=== PATIENT | male | born 1950 | race Caucasian/White ===

== ENCOUNTER 2018-02-06 20:26 | Outpatient (REF) | payer MEDICARE, BC, SELFPAY | END 2018-02-06 20:27 | LOC: LBN 20:26 | PROVIDERS: PCP Family Medicine; Visit Provider Internal Medicine Infectious Disease | DX: Z91.89 Other specified personal risk factors, not elsewhere classified (principal); Z79.2 Long term (current) use of antibiotics | CPT/HCPCS: 87324 ==

== ENCOUNTER 2018-02-09 12:06 | Outpatient (REF) | payer MEDICARE, BC, SELFPAY ==
[2018-02-09 21:57] LABS: Abs Immature Grans 0.08 k/cumm (0.0-0.09); Absolute Basophil Count 0.02 k/cumm (0.0-0.2); Absolute Eosinophil Count 0.45 k/cumm (0.0-0.7); Absolute Lymphocyte Count 0.97 k/cumm (1.2-3.4); Absolute Monocyte Count 0.64 k/cumm (0.11-0.7); Absolute Neutrophil Count 4.99 k/cumm (1.2-6.7); Basophils % 0.3; Eosinophils % 6.3; HCT 40.8 % (40.0-50.0); HGB 13.2 g/dL (13.5-17.5); Immature Grans % 1.1; Lymphocytes % 13.6; Mean Corp. HGB Concentration 32.4 g/dL (32.0-36.0); Mean Corpuscular Hemoglobin 28.5 pg (27.0-33.0); Mean Corpuscular Volume 88.1 fL (80-95); Neutrophils % 69.7; Platelet Count 331 x1000/uL (130-400); RBC 4.63 m/cumm (4.50-6.00); RBC Distribution Width 16.6 % (11.8-14.1); White Blood Cell Count 7.15 k/cumm (4.4-10.8)
[2018-02-09 22:14] LABS: BUN 13 mg/dL (7-18); CREATININE 1.15 mg/dL (0.70-1.30)
[2018-02-09 23:43] LABS: ESR 27 MM/HR (1-20)
== END 2018-02-09 12:07 ==
LOC: LBN 12:06
PROVIDERS: PCP Family Medicine; Visit Provider Internal Medicine Infectious Disease
DX: N41.2 Abscess of prostate (principal); Z79.2 Long term (current) use of antibiotics
CPT/HCPCS: 84520; 85652; 82565; 85025; 86140

== ENCOUNTER 2019-01-27 11:20 | Outpatient (REF) | payer MEDICARE, BC, SELFPAY | END 2019-01-27 11:40 | LOC: NCHCN 11:20 | PROVIDERS: PCP Family Medicine; Visit Provider Family Medicine | DX: R31.9 Hematuria, unspecified (principal) | CPT/HCPCS: 87086 ==

== ENCOUNTER 2019-04-20 17:48 | Outpatient (REF) | payer MEDICARE, BC, SELFPAY ==
[2019-04-20 22:13] LABS: Anion Gap 11.7 mmol/L (3-11); BUN 27 mg/dL (7-18); CO2 28.3 mmol/L (21.0-32.0); CREATININE 1.46 mg/dL (0.70-1.30); Calcium 8.4 mg/dL (8.5-10.1); Chloride 100 mmol/L (98-107); Estimated GFR 47.73 (mL/min/1.73m2); Glucose 304 mg/dL (70-100); Magnesium 1.5 mg/dL (1.8-2.4); Potassium 4.8 mmol/L (3.5-5.1); Sodium 140 mmol/L (136-145)
[2019-04-22 10:30] LABS: PSA, Screening <0.1 ng/ml (0-6.5)
== END 2019-04-20 18:08 ==
LOC: NCHCN 17:48
PROVIDERS: PCP Family Medicine; Visit Provider Family Medicine
DX: N40.0 Benign prostatic hyperplasia without lower urinary tract symptoms (principal); I10 Essential (primary) hypertension; E83.42 Hypomagnesemia; Z12.5 Encounter for screening for malignant neoplasm of prostate
CPT/HCPCS: 80048; 84153; 83735

== ENCOUNTER 2019-05-28 11:30 | Outpatient (REF) | payer MEDICARE, BC, SELFPAY ==
[2019-05-28 21:53] LABS: Anion Gap 7.8 mmol/L (3-11); BUN 26 mg/dL (7-18); CO2 28.2 mmol/L (21.0-32.0); CREATININE 0.97 mg/dL (0.70-1.30); Chloride 106 mmol/L (98-107); Glucose 96 mg/dL (74-106); Potassium 4.7 mmol/L (3.5-5.1); Sodium 142 mmol/L (136-145)
== END 2019-05-28 11:50 ==
LOC: NCHCN 11:30
PROVIDERS: PCP Family Medicine; Visit Provider Family Medicine
DX: R94.4 Abnormal results of kidney function studies (principal); Z01.818 Encounter for other preprocedural examination
CPT/HCPCS: 80048

== ENCOUNTER 2020-01-12 19:31 | Outpatient (REF) | payer MEDICARE, BC, SELFPAY ==
[2020-01-12 20:42] LABS: Abs Immature Grans 0.03 k/cumm (0.0-0.09); Absolute Basophil Count 0.01 k/cumm (0.0-0.2); Absolute Eosinophil Count 0.03 k/cumm (0.0-0.7); Absolute Lymphocyte Count 0.93 k/cumm (1.2-3.4); Absolute Monocyte Count 0.61 k/cumm (0.11-0.7); Absolute Neutrophil Count 3.49 k/cumm (1.2-6.7); Basophils % 0.2; Bilirubin Negative (Negative); Blood Negative (Negative); Eosinophils % 0.6; Glucose Negative (Negative); HCT 43.3 % (40.0-50.0); HGB 13.4 g/dL (13.5-17.5); Immature Grans % 0.6 %; Ketones Trace mg/dL (Negative); Leukocyte Esterase Negative (Negative); Lymphocytes % 18.2; Mean Corp. HGB Concentration 30.9 g/dL (32.0-36.0); Mean Corpuscular Hemoglobin 24.9 pg (27.0-33.0); Mean Corpuscular Volume 80.5 fL (80-95); Mean Platelet Volume 10.9 fL (8.0-11.0); Neutrophils % 68.4; Nitrite Negative (Negative); Platelet Count 342 x1000/uL (130-400); RBC 5.38 m/cumm (4.50-6.00); RBC Distribution Width 20.3 % (11.8-14.1); Specific Gravity >= 1.030 (1.005-1.025); Urobilinogen 0.2 EU/dL (Up TO 0.2); pH 5.5 (5-8)
[2020-01-12 20:45] LABS: Clarity Cloudy (Clear)
[2020-01-12 20:59] LABS: ALT 48 U/L (16-63); AST 29 U/L (15-37); Alkaline Phosphatase 48 U/L (46-116); Anion Gap 10.6 mmol/L (3-11); BUN 26 mg/dL (7-18); Bilirubin, Total 0.6 mg/dL (0.2-1.0); CO2 29.4 mmol/L (21.0-32.0); CREATININE 1.24 mg/dL (0.70-1.30); Calcium 9.3 mg/dL (8.5-10.1); Chloride 100 mmol/L (98-107); Estimated GFR 57.47 (mL/min/1.73m2); Glucose 237 mg/dL (74-106); Potassium 4.3 mmol/L (3.5-5.1); Sodium 140 mmol/L (136-145); Total Protein 7.8 g/dL (6.4-8.2)
[2020-01-12 21:06] LABS: Anisocytosis 2+; Polychromasia Present
== END 2020-01-12 19:51 ==
LOC: LBN 19:31
PROVIDERS: PCP Family Medicine; Visit Provider Urology
DX: R30.0 Dysuria (principal); M06.9 Rheumatoid arthritis, unspecified; Z79.899 Other long term (current) drug therapy
CPT/HCPCS: 80053; 81003; 85025; 87086

== ENCOUNTER 2020-01-20 12:14 | Outpatient (REF) | payer MEDICARE, BC, SELFPAY ==
[2020-01-20 21:16] LABS: Cholesterol 188 mg/dL (<200); HDL Cholesterol 26 mg/dL (40-60); Triglyceride 581 mg/dL (<150)
[2020-01-20 21:31] LABS: LDL CHOLESTEROL 94 mg/dL (<100)
[2020-01-24 09:19] LABS: PSA, Screening <0.1 ng/mL (0.0-6.5)
== END 2020-01-20 12:34 ==
LOC: NCHCN 12:14
PROVIDERS: PCP Family Medicine; Visit Provider Family Medicine
DX: E11.9 Type 2 diabetes mellitus without complications (principal); E78.5 Hyperlipidemia, unspecified; N40.0 Benign prostatic hyperplasia without lower urinary tract symptoms; Z12.5 Encounter for screening for malignant neoplasm of prostate; Z87.448 Personal history of other diseases of urinary system
CPT/HCPCS: 80061; 83721; 84153

== ENCOUNTER 2020-03-23 10:50 | Outpatient (REF) | payer MEDICARE, BC, SELFPAY ==
[2020-03-23 21:44] LABS: Vitamin D 25 Total 99.5 ng/ml (30-100)
== END 2020-03-23 11:10 ==
LOC: NCHCN 10:50
PROVIDERS: PCP Family Medicine; Visit Provider Family Medicine
DX: N18.30 Chronic kidney disease, stage 3 unspecified (principal)
CPT/HCPCS: 82306

== ENCOUNTER 2020-04-28 03:29 | Outpatient (CLI) | payer MEDICARE, BC, SELFPAY ==
[2020-04-30 11:45] LABS: SARS-CoV-2 RNA Not Detected (NotDetected); SARS-CoV-2 RNA Source Nasal/Nares
== END 2020-04-28 03:49 ==
PROVIDERS: PCP Family Medicine; Visit Provider Family Medicine
DX: Z01.818 Encounter for other preprocedural examination (principal)
CPT/HCPCS: U0003

== ENCOUNTER 2020-06-09 11:44 | Outpatient (REF) | payer MEDICARE, BC, SELFPAY ==
[2020-06-09 21:32] LABS: HGB 11.3 g/dL (13.5-17.5); MCH 24.8 pg (27.0-33.0); MCHC 30.5 % (32.0-36.0); MCV 81.3 fL (80-95); MPV 10.5 fL (8.0-11.0); Platelet Count 249 10^3/uL (130-400); RBC 4.55 10^6/uL (4.36-5.78); RDW-SD 57.3 fL; WBC 5.54 10^3/uL (4.4-10.8)
[2020-06-09 21:49] LABS: ALT 31 U/L (16-63); AST 19 U/L (15-37); Albumin 3.6 g/dL (3.4-5.0); Alkaline Phosphatase 42 U/L (46-116); Anion Gap 9.9 mmol/L (3-11); BUN 24 mg/dL (7-18); Bilirubin, Total 0.6 mg/dL (0.2-1.0); CO2 26.1 mmol/L (21.0-32.0); CREATININE 1.16 mg/dL (0.70-1.30); Calcium 8.7 mg/dL (8.5-10.1); Chloride 103 mmol/L (98-107); Glucose 138 mg/dL (74-106); Potassium 4.1 mmol/L (3.5-5.1); Sodium 139 mmol/L (136-145); Total Protein 6.6 g/dL (6.4-8.2)
[2020-06-09 21:59] LABS: Hemoglobin A1C 6.8 % (<5.7)
== END 2020-06-09 12:04 ==
LOC: NCHCN 11:44
PROVIDERS: PCP Family Medicine; Visit Provider Family Medicine
DX: E11.65 Type 2 diabetes mellitus with hyperglycemia (principal); I10 Essential (primary) hypertension; D50.9 Iron deficiency anemia, unspecified; R94.4 Abnormal results of kidney function studies; E66.9 Obesity, unspecified; E78.5 Hyperlipidemia, unspecified
CPT/HCPCS: 80053; 85027; 83036

== ENCOUNTER 2020-07-07 19:47 | Outpatient (REF) | payer MEDICARE, BC, SELFPAY ==
[2020-07-07 21:46] LABS: Abs Immature Grans 0.02 10^3/uL (0.0-0.06); Absolute Basophil Count 0.03 10^3/uL (0.0-0.2); Absolute Eosinophil Count 0.01 10^3/uL (0.0-0.7); Absolute Lymphocyte Count 1.15 10^3/uL (1.2-3.4); Absolute Monocyte Count 0.47 10^3/uL (0.1-0.8); Absolute Neutrophil Count 4.13 10^3/uL (1.2-6.7); Basophils % 0.5; Eosinophils % 0.2; HCT 38.5 % (40.0-50.0); Immature Grans % 0.3; Lymphocytes % 19.8; MCH 26.6 pg (27.0-33.0); MCHC 31.2 % (32.0-36.0); MCV 85.4 fL (80-95); MPV 9.8 fL (8.0-11.0); Monocytes % 8.1; Neutrophils % 71.1; Nucleated RBC 0 %; Platelet Count 273 10^3/uL (130-400); RBC 4.51 10^6/uL (4.36-5.78); RDW 23.9 % (11.8-14.1); RDW-SD 71.9 fL; WBC 5.81 10^3/uL (4.4-10.8)
[2020-07-07 21:48] LABS: BUN 23 mg/dL (7-18); Calcium 8.7 mg/dL (8.5-10.1); Chloride 105 mmol/L (98-107); Estimated GFR 59.68 (mL/min/1.73m2); Glucose 179 mg/dL (74-106); Potassium 4.3 mmol/L (3.5-5.1); Sodium 139 mmol/L (136-145)
[2020-07-07 21:58] LABS: Anisocytosis 3+; Diff Comment RBC Morph Reviewed; Macrocytosis 1+; Microcytosis 1+; Polychromasia Present
[2020-07-07 21:59] LABS: Poikilocytes 1+
== END 2020-07-07 20:07 ==
LOC: LBN 19:47
PROVIDERS: PCP Family Medicine; Visit Provider Orthopaedic Surgery
DX: Z01.818 Encounter for other preprocedural examination (principal)
CPT/HCPCS: 80048; 85025

== ENCOUNTER 2020-09-19 20:53 | Outpatient (REF) | payer MEDICARE, BC, SELFPAY ==
[2020-09-19 21:31] LABS: HCT 32.7 % (40.0-50.0); HGB 10.8 g/dL (13.5-17.5); MCH 33.2 pg (27.0-33.0); MCV 100.6 fL (80-95); MPV 9.6 fL (8.0-11.0); Platelet Count 277 10^3/uL (130-400); RBC 3.25 10^6/uL (4.36-5.78); RDW 19.9 % (11.8-14.1); RDW-SD 73.3 fL; WBC 3.94 10^3/uL (4.4-10.8)
[2020-09-19 21:38] LABS: BUN 19 mg/dL (7-18); CREATININE 1.2 mg/dL (0.70-1.30); Calcium 8.6 mg/dL (8.5-10.1); Chloride 105 mmol/L (98-107); Estimated GFR 59.68 (mL/min/1.73m2); Glucose 183 mg/dL (74-106); Potassium 4.3 mmol/L (3.5-5.1); Sodium 143 mmol/L (136-145)
[2020-09-19 21:50] LABS: Hemoglobin A1C 7.1 % (<5.7)
== END 2020-09-19 20:54 | disposition home or self-care (01) ==
LOC: NCHCN 20:53
PROVIDERS: PCP Family Medicine; Visit Provider Family Medicine
DX: E11.9 Type 2 diabetes mellitus without complications (principal); Z01.818 Encounter for other preprocedural examination
CPT/HCPCS: 80048; 85027; 83036

== ENCOUNTER 2020-10-27 20:39 | Outpatient (REF) | payer MEDICARE, BC, SELFPAY ==
[2020-10-27 21:33] LABS: Bilirubin Negative (Negative); Blood Trace-intact (Negative); Clarity Turbid (Clear); Glucose Negative (Negative); Ketones Negative (Negative); Leukocyte Esterase Small (Negative); Nitrite Positive (Negative); Urobilinogen 0.2 EU/dL (Up TO 0.2); pH >= 9.0 (5-8)
[2020-10-27 21:47] LABS: Bacteria Many HPF (Negative); Crystals Few Triple Phos HPF (Negative); Epithelial Cells Few HPF (Negative); RBC >50 HPF (0-2)
[2020-10-27 21:48] LABS: C & S Indicated? C&S Done As Ordered; Casts Negative LPF (Negative); Mucus Heavy (Negative)
== END 2020-10-27 20:40 | disposition home or self-care (01) ==
LOC: NCHCN 20:39
PROVIDERS: PCP Family Medicine; Visit Provider Urology
DX: R35.0 Frequency of micturition (principal)
CPT/HCPCS: 87077; 81003; 81015; 87086; 87186

== ENCOUNTER 2020-11-21 15:15 | Outpatient (REF) | payer MEDICARE, BC, SELFPAY ==
[2020-11-21 21:43] LABS: Bilirubin Negative (Negative); Blood Large (Negative); Clarity Cloudy (Clear); Glucose Negative (Negative); Ketones Negative (Negative); Leukocyte Esterase Moderate (Negative); Nitrite Positive (Negative); Urobilinogen 0.2 EU/dL (Up TO 0.2); pH 8.5 (5-8)
[2020-11-21 21:55] LABS: Epithelial Cells Rare HPF (Negative); Other Cells Negative (Negative); WBC 20-50 HPF (0-5)
[2020-11-21 21:56] LABS: Bacteria Many HPF (Negative); C & S Indicated? C&S Done As Ordered; Casts Negative LPF (Negative); Crystals Few Triple Phos HPF (Negative); Mucus Moderate (Negative)
== END 2020-11-21 15:16 | disposition home or self-care (01) ==
LOC: LBN 15:15
PROVIDERS: PCP Family Medicine; Visit Provider Urology
DX: R31.0 Gross hematuria (principal)
CPT/HCPCS: 87077; 81003; 81015; 87086; 87186

== ENCOUNTER 2020-12-26 17:05 | Outpatient (REF) | payer MEDICARE, BC, SELFPAY ==
[2020-12-26 20:23] LABS: HCT 35.6 % (40.0-50.0); HGB 11.8 g/dL (13.5-17.5); MCH 36.1 pg (27.0-33.0); MCHC 33.1 % (32.0-36.0); MCV 108.9 fL (80-95); MPV 10.8 fL (8.0-11.0); Platelet Count 292 10^3/uL (130-400); RBC 3.27 10^6/uL (4.36-5.78); RDW 13.2 % (11.8-14.1); RDW-SD 53.1 fL; WBC 5.71 10^3/uL (4.4-10.8)
[2020-12-26 20:54] LABS: COMMENT (LAB VIEW ONLY) 136.32 mg/dL
[2020-12-26 21:00] LABS: Microalb ug/mg Crea 321.7 ug/mg Cr
== END 2020-12-26 17:06 | disposition home or self-care (01) ==
LOC: NCHCN 17:05
PROVIDERS: PCP Family Medicine; Visit Provider Family Medicine
DX: D50.9 Iron deficiency anemia, unspecified (principal); R39.9 Unspecified symptoms and signs involving the genitourinary system; E11.9 Type 2 diabetes mellitus without complications
CPT/HCPCS: 85027; 87077; 82043; 82570; 87086; 87186

== ENCOUNTER 2021-01-19 19:43 | Inpatient (IN) | payer MEDICARE, BC, SELFPAY ==
[2021-01-19] VITALS (27 sets, daily range): BP systolic 125–161; BP diastolic 64–99; PULSE 103–115; RESP 16–40; TEMP 36.8; O2SAT 94–98
--- NOTE | 2021-01-19 19:45 | RT.EKG_ITS ---
APPROVED REPORT Exam: Resting ECG Reason for Exam: chest pain Patient Location: E HR:108 bpm ECG Measurements Heart Rate 108 AXIS IN 180 P 50 QRSd 77 QRS 34 QT 316 T 41 QTc 424 Conclusion Sinus tachycardia...rate> 99
--- NOTE | 2021-01-19 20:00 | DI.RAD_ITS ---
Exam(s) XR CHEST 2V PA LATERAL EXAM: XR CHEST 2V PA LATERAL CLINICAL HISTORY: Chest Pain, SOB TECHNIQUE: COMPARISON: CT CT CHEST PE CTA from 01/19/2021 FINDINGS: The heart is at the upper limits of normal in size. Lungs appear clear and normally expanded. No pl eural effusion seen on the lateral view. IMPRESSION: No evidence of acute process. RADIATION DOSE DELIVERED: Total DLP
[2021-01-19 20:02] LABS: Abs Immature Grans 0.07 10^3/uL (0.0-0.06); Absolute Lymphocyte Count 0.76 10^3/uL (1.2-3.4); Basophils % 0.2; HCT 41.6 % (40.0-50.0); HGB 13.7 g/dL (13.5-17.5); Immature Grans % 0.5; Lymphocytes % 5.9; MCH 34.1 pg (27.0-33.0); MCHC 32.9 % (32.0-36.0); MCV 103.5 fL (80-95); MPV 10.2 fL (8.0-11.0); Monocytes % 6.9; Neutrophils % 86.5; Nucleated RBC 0 %; Platelet Count 279 10^3/uL (130-400); RBC 4.02 10^6/uL (4.36-5.78); RDW 12.8 % (11.8-14.1); RDW-SD 49.1 fL; WBC 12.83 10^3/uL (4.4-10.8)
[2021-01-19 20:03] LABS: Absolute Basophil Count 0.03 10^3/uL (0.0-0.2); Absolute Monocyte Count 0.89 10^3/uL (0.1-0.8)
--- NOTE | 2021-01-19 20:10 | ED.GENADUL_ITS ---
Discharge Plan Disposition Patient Disposition: [facility] INPATIENT Condition: Stable Discharge Details Clinical Impression: UTI (urinary tract infection), Altered mental status, unspecified Admit Date/Time: 01/19/21 22:42 Admit Provider: Enrique Brown Attending Provider: Enrique Brown Primary Care Provider: Jax Higginbotham ED Provider: Patria Kim Medical Decision Making <Patria Kim - Last Filed: 01/19/21 23:58> 70-year-old male presents to the ER via EMS with chief complaint of chest pain, disorientation, mild shortness of breath which began approximately 2 hours ago. Patient reports lasted for approximately 45 minutes he describes as midsternal. He is not currently having any chest pain upon arrival. He does have a past medical history of insulin-dependent diabetes, SVT, CHF and is on diuretics, denies having any significant cardiac history besides SVT no [place]. Did take 324 mg of baby aspirin at home prior to arrival of the onset of chest pain. CBC shows mild leukocytosis with white blood cell count of 12.83, absolute neutrophils 11.10, sodium is 146, potassium 4.4, BUN 33 creatinine 1.4 GFR is 49.82 glucose is 136 mag is slightly low at 1.7 initial troponin within normal limits less than 0.05 BNP is not elevated, urinalysis shows 30 protein, trace ketones, small blood, positive nitrite small leukocytes greater than 50 WBC, culture is pending at this COMPARISON: CR XR CHEST 2V PA LATERAL 01/19/2021 8:38 PM FINDINGS: Pulmonary arteries: Breathing motion limits exam. No evidence of pulmonary embolus to the lobar level and segmental level in some cases. Aorta: Unremarkable. No aortic aneurysm. No aortic dissection. Lungs: Unremarkable. No consolidation. No masses. Pleural spaces: Unremarkable. No pneumothorax. No pleural effusion. Heart: Unremarkable. No cardiomegaly. No pericardial effusion. Lymph nodes: Mildly prominent mediastinal lymph nodes. Kidneys and ureters: Hypodensity in the right kidney is most likely a cyst. Bones/joints: Unremarkable. No acute fracture. Soft tissues: Unremarkable. IMPRESSION: Limited study due to breathing motion, but no evidence of pulmonary embolus CTA chest with contrast: FINDINGS: Pulmonary arteries: Breathing motion limits exam. No evidence of pulmonary embolus to the lobar level and segmental level in some cases. Aorta: Unremarkable. No aortic aneurysm. No aortic dissection. Lungs: Unremarkable. No consolidation. No masses. Pleural spaces: Unremarkable. No pneumothorax. No pleural effusion. Heart: Unremarkable. No cardiomegaly. No pericardial effusion. Lymph nodes: Mildly prominent mediastinal lymph nodes. Kidneys and ureters: Hypodensity in the right kidney is most likely a cyst. Bones/joints: Unremarkable. No acute fracture. Soft tissues: Unremarkable. IMPRESSION: Limited study due to breathing motion, but no evidence of pulmonary embolus Due to UTI, high risk factors, weakness confusion, CBC with slight leukocytosis I do recommend admission at this time for IV antibiotics and further observation. I did discuss the plan with patient and who verbalized understanding and are in agreement with plan. Rocephin 1 g IV piggyback ordered at this time. Normal saline at 150 an hour ordered. 2200: Hospitalist paged. 2241: Spoke with Dr. Brown discussed patient case and details who agrees to accept patient for admission. Patient remained hemodynamically stable throughout the rest of the stay in the emergency department. Patient transferred up to the floor by billing and accounting staff assistant. <Gael Wilkerson MD - Last Filed: 01/19/21 23:35> Patient seen, examined, and discussed with ALICE Kim. I agree with treatment plan as discussed/documented. HPI <Patria Kim - Last Filed: 01/19/21 23:58> General Mode of arrival: EMS . Date/Time Provider Initiated Documentation: 01/19/21 19:45 . Limitations to Documentation: altered mental status . Information obtained by: patient, family () and EMS . HPI Narrative: 70-ye ar-old male presents to the ER via EMS with chief complaint of chest pain, disorientation, mild shortness of breath which began approximately 2 hours ago. Patient reports lasted for approximately 45 minutes he describes as midsternal. He is not currently having any chest pain upon arrival. He does have a past medical history of insulin-dependent diabetes, SVT, CHF and is on diuretics, denies having any significant cardiac history besides SVT no [place]. Did take 324 mg of baby aspirin at home prior to arrival of the onset of chest pain. Related Data Home Medications Medication Instructions Recorded Confirmed Lactobac 40-Bifido 3-S.thermop 1 cap PO DAILY 01/19/21 01/19/21 [Probiotic] albuterol sulfate [ProAir HFA] 1 - 2 puff INHALATION Q4H PRN PRN 01/19/21 01/19/21 aspirin [Aspir-81] 81 mg PO DAILY 01/19/21 01/19/21 cetirizine [Zyrtec] 10 mg PO DAILY 01/19/21 01/19/21 clotrimazole 1 applic TOPICAL TID 01/19/21 01/19/21 diclofenac sodium [Voltaren] 1 applic TOPICAL BID 01/19/21 01/19/21 hydrocortisone 1 applic TOPICAL BID PRN 01/19/21 01/19/21 insulin detemir U-100 [Levemir 81 unit SUBCUT HS 01/19/21 01/19/21 FlexTouch U-100 Insuln] insulin detemir U-100 [Levemir 65 unit SUBCUT DAILY AM 01/19/21 01/19/21 Flexpen] ipratropium bromide See Rx Instructions .ROUTE .COMPLEX 01/19/21 01/19/21 liraglutide [Victoza 3-Pj] 1.8 mg SUBCUT DAILY 01/19/21 01/19/21 mepolizumab [Nucala] 100 mg SUBCUT Q4W 01/19/21 01/19/21 metformin 1,000 mg PO BID 01/19/21 01/19/21 metoprolol tartrate 75 mg PO BID 01/19/21 01/19/21 mirabegron [Myrbetriq] 50 mg PO DAILY 01/19/21 01/19/21 montelukast 10 mg PO DAILY 01/19/21 01/19/21 nystatin 1 applic TOPICAL TID 01/19/21 01/19/21 omeprazole 40 mg PO DAILY 01/19/21 01/19/21 pregabalin 150 mg PO BID 01/19/21 01/19/21 sitagliptin [Januvia] 100 mg PO DAILY 01/19/21 01/19/21 torsemide 20 mg PO DAILY 01/19/21 01/19/21 verapamil 240 mg PO HS 01/19/21 01/19/21 zolpidem [Ambien] 10 mg PO DAILY 01/19/21 01/19/21 Allergies Allergy/AdvReac Type Severity Reaction Status Date / Time No Known Allergies Allergy Unverified 01/19/21 20:29 General RICARDO: 2 Review of Systems <Patria Judy - Last Filed: 01/19/21 23:58> All systems reviewed & are unremarkable except as noted in HPI and below Constitutional Constitutional: Denies headache(s) ENT Ears, Nose, Mouth, and Throat: Denies headache(s) Cardiovascular Cardiovascular: Reports as per HPI, Reports acrocyanosis, Reports chest pain, Reports chest pain at rest (While sitting down none), Reports leg edema (Worse over the last couple of days) and Reports dyspnea Respiratory Respiratory: Denies hemoptysis and Reports dyspnea Gastrointestinal Gastrointestinal: Denies abdominal pain, Denies diarrhea, Denies nausea and Denies vomiting Genitourinary Genitourinary: Reports dysuria (Frequent urinary tract infection) Musculoskeletal Musculoskeletal: Denies back pain Neurologic Neurologic: Reports confusion ( reports gets disoriented when not feeling well intermittent) and Denies headache(s) Psychiatric Psychiatric: Reports confusion ( reports gets disoriented when not feeling well intermittent) [facility] <Patria Judy - Last Filed: 01/19/21 23:58> Medical History (Updated 01/19/21 @ 22:48 by Patria Kim) Diabetes Surgical History (Updated 01/19/21 @ 20:28 by Tish Lr) History of bilateral knee replacement History of implantation of artificial sphincter Social History Smoking/Tobacco Use Status: Never Smoking risk assessment performed?: Yes Alcohol Intake: never Substance use type: does not use Do you feel safe at home: Yes Do you feel safe in your relationship?: Yes Exam <Patria Kim - Last Filed: 01/19/21 23:58> Narrative Exam Narrative: Constitutional: Alert and oriented x2. Appears older than stated age. Obese body habitus. Patient appears sickly. Head: Normocephalic, no trauma. Eyes: Pupils PERRLA, Red reflex noted, EOM's intact. Eyelids symmetrical without lesions, discharge, or swelling. ENT: Bilateral TM's WNL, External ear normal to inspection, no mastoid TTP, swelling, or erythema, Nasal turbinates WNL, no nasal discharge. Posterior pharynx WNL, no exudate. Dry mucous membranes. Chest: Mildly tachycardic at 109, Normal S1, S2, distal pulses intact. Hands bilaterally are cool to the touch reports noticing bluish in color. Resp: Lungs diminished bilaterally, upper airway wheezes and scattered rhonchi. Mild increase shortness of breath and increased work of breathing with any movement or exertion. Musculoskeletal: Unable to assess gait, 5/5 strength to all four extremities. 2+ pitting edema noted to bilateral lower extremities UZMA hose are in place on arrival. Skin: No suspicious rashes or lesions. Capillary refill less than 2 sec. Neurologic: Cranial nerves II-XII intact. Alert and oriented x 2. No focal neuro deficits noted. Hematologic/Lymphatic: No ecchymosis, no lymphadenopathy. Course <Patria Kim - Last Filed: 01/19/21 23:58> Lab/Test Results Lab/Test Results: Laboratory Tests Range/Units 01/19/21 19:56 WBC (4.4-10.8) 10^3/uL 12.83 H RBC (4.36-5.78) 10^6/uL 4.02 L Hgb (13.5-17.5) g/dL 13.7 Hct (40.0-50.0) % 41.6 MCV (80-95) fL 103.5 H MCH (27.0-33.0) pg 34.1 H MCHC (32.0-36.0) % 32.9 RDW (11.8-14.1) % 12.8 Plt Count (130-400) 10^3/uL 279 MPV (8.0-11.0) fL 10.2 Immature Gran % 0.5 Neutrophils % 86.5 Lymphocytes % 5.9 Monocytes % 6.9 Eosinophils % 0.0 Basophils % 0.2 Nucleated RBC % % 0 Absolute Neutrophils (1.2-6.7) 10^3/uL 11.10 H Absolute Lymphocytes (1.2-3.4) 10^3/uL 0.76 L Absolute Monocytes (0.1-0.8) 10^3/uL 0.89 H Absolute Eosinophils (0.0-0.7) 10^3/uL 0.00 Absolute Basophils (0.0-0.2) 10^3/uL 0.03
[2021-01-19 20:18] LABS: ALT 22 U/L (16-63); AST 11 U/L (15-37); Albumin 3.9 g/dL (3.4-5.0); Alkaline Phosphatase 58 U/L (46-116); Anion Gap 7.7 mmol/L (3-11); BUN 33 mg/dL (7-18); Bilirubin, Total 0.5 mg/dL (0.2-1.0); CO2 33.3 mmol/L (21.0-32.0); CREATININE 1.4 mg/dL (0.70-1.30); Calcium 9.6 mg/dL (8.5-10.1); Chloride 105 mmol/L (98-107); Estimated GFR 49.82 (mL/min/1.73m2); Glucose 136 mg/dL (74-106); Magnesium 1.7 mg/dL (1.8-2.4); Potassium 4.4 mmol/L (3.5-5.1); Sodium 146 mmol/L (136-145); Troponin I < 0.05 ng/mL (<0.06)
[2021-01-19 20:38] LABS: NT-proBNP 48 pg/mL (<300)
--- NOTE | 2021-01-19 21:02 | DI.CT_ITS ---
Exam(s) CT CHEST PE CTA EXAM: CT CHEST PE CTA CLINICAL HISTORY: R/O PE, Chest pain, Tachycardia. TECHNIQUE: Imaging Protocol: Axial CT angiography was performed with multi-slice acquisition and mu lti-planar and/or 3D reconstructions. CONTRAST MATERIAL: Intravenous: Omnipaque 350 Contrast volume:structured data in ml COMPARISON: No exams were available for comparison FINDINGS: CT angiography of the chest was performed with intravenous infusion of 100 cc of Omnipaque 350. The lungs are clear. No pleural effusion. Tracheobronchial tree appears intact. No evidence of pulmonary embolic disease, the examination is somewhat limited secondary to motion art ifact and peripheral subsegmental vessels are nonvisualized.. Thoracic aorta is of normal diameter, no thoracic aortic aneurysm or dissection, major branch vessels appear intact. No mediastinal or hilar adenopathy. There are numerous small questionable areas lucency in multiple thoracic vertebral bodies, the findin gs are nonspecific but possibility of multiple myeloma or other neoplastic process is not excluded. Correlation with thoracic spine MRI recommended. Images obtained through the upper abdomen show unremarkable appearance of the visualized portions of the liver, spleen, pancreas, adrenals, and kidneys. IMPRESSION: No evidence of pulmonary embolic disease. Question multiple small lytic lesions in thoracic vertebrae. Correlation with thoracic spine MRI rec ommended. Results were communicated with the [facility] emergency department, Dr. Montemayor, RADIATION DOSE DELIVERED: 582.52mGy.cm Total DLP 582.52mGy.cm Total DLP CTDIvol DATA REPOSITORY: All CT scans at this facility are submitted to the National Radiology Data Registry (NRDR) Dose Index Registry (DIR) with the [employer] ([employer]). RADIATION OPTIMIZATION: All CT scans at this facility use at least one of these dose optimization te chniques: automated exposure control; mA and/or kV adjustment per patient size (includes targeted exa ms where dose is matched to clinical indication); or iterative reconstruction.
[2021-01-19] MEDS: Omnipaque 350 MG/ML 100 ML BTL IJ (21:03)
[2021-01-19] MEDS: Normal Saline Flush 10 ML SYR IVP (21:04)
[2021-01-19] MEDS: Normal Saline - Diluent 50 ML VIAL IV (21:04)
--- NOTE | 2021-01-19 21:18 | DI.VRAD_ITS ---
PROCEDURE INFORMATION: Exam: CTA Chest With Contrast Exam date and time: 01/19/2021 8:27 PM Age: 70 years old Clinical indication: Other: R/O pe, chest pain, tachycardia TECHNIQUE: Imaging protocol: Computed tomographic angiography of the chest with contrast. 3D rendering (Not supervised by radiologist): MIP and/or 3D reconstructed images were created by the technologist. Radiation optimization: All CT scans at this facility use at least one of these dose optimization techniques: automated exposure control; mA and/or kV adjustment per patient size (includes targeted exams where dose is matched to clinical indication); or iterative reconstruction. Contrast material: OMNIPAQUE 350; Contrast volume: 100 ml; Contrast route: INTRAVENOUS (IV); COMPARISON: CR XR CHEST 2V PA LATERAL 01/19/2021 8:38 PM FINDINGS: Pulmonary arteries: Breathing motion limits exam. No evidence of pulmonary embolus to the lobar level and segmental level in some cases. Aorta: Unremarkable. No aortic aneurysm. No aortic dissection. Lungs: Unremarkable. No consolidation. No masses. Pleural spaces: Unremarkable. No pneumothorax. No pleural effusion. Heart: Unremarkable. No cardiomegaly. No pericardial effusion. Lymph nodes: Mildly prominent mediastinal lymph nodes. Kidneys and ureters: Hypodensity in the right kidney is most likely a cyst. Bones/joints: Unremarkable. No acute fracture. Soft tissues: Unremarkable. IMPRESSION: Limited study due to breathing motion, but no evidence of pulmonary embolus Dictated and Authenticated by: Dony Cazares MD. Ordering:ALLISON España MD
--- NOTE | 2021-01-19 21:20 | DI.VRAD_ITS ---
PROCEDURE INFORMATION: Exam: XR Chest Exam date and time: 01/19/2021 8:11 PM Age: 70 years old Clinical indication: Other: Chest pain, SOB TECHNIQUE: Imaging protocol: XR of the chest. Views: 2 views. COMPARISON: No relevant prior studies available. FINDINGS: Lungs: Unremarkable. No consolidation. Pleural spaces: Unremarkable. No pleural effusion. No pneumothorax. Heart/Mediastinum: Unremarkable. No cardiomegaly. Bones/joints: Unremarkable. IMPRESSION: No acute findings. Dictated and Authenticated by: Dony Cazares MD. Ordering:ALLISON España MD
[2021-01-19 21:48] LABS: Bilirubin Negative (Negative); Blood Small (Negative); Clarity Cloudy (Clear); Glucose Negative (Negative); Ketones Trace mg/dL (Negative); Leukocyte Esterase Small (Negative); Nitrite Positive (Negative); Specific Gravity 1.015 (1.005-1.025); pH 8.5 (5-8)
[2021-01-19] MEDS: Albuterol 2.5 MG/3 ML INH SOLN VIAL UPD (21:48)
[2021-01-19 21:59] LABS: Bacteria Many HPF (Negative); C & S Indicated? Yes; Casts Negative LPF (Negative); Crystals Negative HPF (Negative); Epithelial Cells Negative HPF (Negative); Mucus Negative (Negative); RBC Negative HPF (0-2); WBC >50 HPF (0-5)
[2021-01-19 22:29] LABS: Source Nasal/Nares
[2021-01-19 22:40] LABS: Troponin I < 0.05 ng/mL (<0.06)
--- NOTE | 2021-01-19 22:52 | W.PM.HP.N ---
Date of service: 01/19/21 Time of Service: 22:52 Assessment and Plan Assessment and plan (1) Sepsis: Status: Acute Assessment and plan: Patient meets criteria for sepsis given the prolonged tachycardia along with acute kidney injury and evidence of urinary tract infection and acute mental status change. His acute mental status change appears to be improving with IV fluid hydration and initiation of antibiotics. Patient will continue to receive high-dose Rocephin along with IV fluids. Because of his history of congestive heart failure will need to monitor his fluid balance as well as his weight. Apparently he gets most of his care through [facility] and we do not have any cardiac records on him here at [facility]. We will try to get records in the morning so we can determine whether he has heart failure with preserved ejection fraction versus heart failure with reduced ejection fraction. May be worth doing a bedside POCUS echocardiogram on him in the morning. Qualifiers: Acute renal failure type: with acute tubular necrosis Sepsis acute organ dysfunction status: with acute organ dysfunction Sepsis type: sepsis due to unspecified organism Severe sepsis acute organ dysfunction type: acute renal failure Severe sepsis shock status: without septic shock Qualified Code(s): A41.9 - Sepsis, unspecified organism; R65.20 - Severe sepsis without septic shock; N17.0 - Acute kidney failure with tubular necrosis (2) Altered mental status, unspecified: Status: Acute Assessment and plan: Mental status seems to improve with IV fluids. Continue antibiotics and IV fluids. Qualifiers: Altered mental status type: transient alteration of awareness Qualified Code(s): R40.4 - Transient alteration of awareness (3) UTI (urinary tract infection): Status: Acute Assessment and plan: Continue Rocephin 2 g IV daily. Consider renal ultrasound in the morning to rule out complex UTI such as pyelonephritis or complex nephrolithiasis. I will request nursing to monitor pre and post void bladder volumes. Qualifiers: Hematuria presence: with hematuria Urinary tract infection type: site unspecified Qualified Code(s): N39.0 - Urinary tract infection, site not specified; R31.9 - Hematuria, unspecified (4) Acute kidney injury (nontraumatic): Status: Acute Assessment and plan: Secondary to UTI dehydration. Continue gentle IV fluid hydration and monitor urine output and monitor BMP. Will obtain [id number] ultrasound of his kidneys in the morning (5) Dehydration: Status: Acute Assessment and plan: IV fluids as above (6) DVT prophylaxis: Status: Acute Assessment and plan: Renal adjusted dosing of Lovenox History of Present Illness History of Present Illness Chief Complaint: Dyspnea confusion and chest pain Narrative: 70-year-old male with a history of insulin-dependent diabetes mellitus and COPD and hypertension, SVT and CHF who presented to the emergency department with complaints of substernal chest discomfort mild dyspnea and confusion. Chest discomfort lasted for about 45 minutes but had resolved by the time he presented to the emergency department. Patient has no fever or rigors. However work-up in the emergency department included space a CTA of the chest with contrast as well as routine labs and EKG. CT of the chest was a limited study due to breathing motion artifact but there was no evidence of pulmonary embolism. Lungs were unremarkable no consolidation no masses. Aorta was unremarkable without aneurysm. Heart showed no cardiomegaly no pericardial effusion. Labs were remarkable for a leukocytosis of 12,800 no anemia but with macrocytic changes to his red cells with MCV of 103. Platelet count was normal at 279,000. CMP was remarkable for elevated sodium of 146 and a carbon dioxide level of 33 with an elevated BUN and creatinine of 33 and 1.4. Glucose was 136 and magnesium level was 1.7. LFTs were normal. Troponin I level x2 sets were negative at less than 0.05. Procalcitonin was mildly elevated at 0.1 and blood lactate was elevated 2.2. Urinalysis was cloudy and positive for nitrites small amount of blood trace of ketones small amount of leukocyte esterase with greater than 50 white cells and many bacteria. Blood and urine cultures were obtained. Patient was started on normal saline at 150 mL an hour. Fluid bolus was not given because of his history of CHF although he showed no evidence of acute CHF at present. Patient was given ceftriaxone 1 g IV. Patient had presented with sinus tachycardia and has remained in sinus tachycardia with heart rates varying between 103 and 112 bpm he has not had any hypotension. His presenting blood pressure is 136/99 and is currently at 160/83. His oxygen saturations 100% on room air. He reportedly had some wheezing while he was in the emergency department was given an albuterol updraft. Patient is being admitted for treatment of urosepsis. He has had a history of frequent urinary tract infections and review of his previous urine cultures have shown repeated growth of Proteus mirabilis. He had a urine culture from December 26 as well as November 21 and October 27, 2020. All these have grown Proteus mirabilis which has been pansensitive except for resistance to nitrofurantoin. Patient will be admitted and treated with IV fluids to treat his dehydration as well as being given high-dose Rocephin. He will receive another gram of Rocephin tonight and then be placed on 2 g every 24 hours pending his culture results. If he has no bacteremia he could potentially be discharged home on oral antibiotics in the next 24 hours. Patient should have some imaging of his kidneys to rule out nephrolithiasis or obstructive uropathy. He does have a history of a penile implant which may be contributing to reduced bladder emptying. Review of Systems All systems reviewed & are unremarkable except as noted in HPI and below PFSH Medical History (Updated 01/20/21 @ 00:34 by Enrique Brown) Diabetes Surgical History (Updated 01/19/21 @ 20:28 by Tish Lr) History of bilateral knee replacement History of implantation of artificial sphincter Social History Smoking/Tobacco Use Status: Never Smoking risk assessment performed?: Yes Alcohol Intake: never Substance use type: does not use Do you feel safe at home: Yes Do you feel safe in your relationship?: Yes Meds Allergies and Home Medications Allergies Allergy/AdvReac Type Severity Reaction Status Date / Time No Known Allergies Allergy Unverified 01/19/21 20:29 Home Medications Medication Instructions Recorded Confirmed Type Lactobac 40-Bifido 3-S.thermop 1 cap PO DAILY 01/19/21 01/19/21 History [Probiotic] albuterol sulfate [ProAir HFA] 1 - 2 puff INHALATION Q4H PRN PRN 01/19/21 01/19/21 History aspirin [Aspir-81] 81 mg PO DAILY 01/19/21 01/19/21 History cetirizine [Zyrtec] 10 mg PO DAILY 01/19/21 01/19/21 History clotrimazole 1 applic TOPICAL TID 01/19/21 01/19/21 History diclofenac sodium [Voltaren] 1 applic TOPICAL BID 01/19/21 01/19/21 History hydrocortisone 1 applic TOPICAL BID PRN 01/19/21 01/19/21 History insulin detemir U-100 [Levemir 81 unit SUBCUT HS 01/19/21 01/19/21 History FlexTouch U-100 Insuln] insulin detemir U-100 [Levemir 65 unit SUBCUT DAILY AM 01/19/21 01/19/21 History Flexpen] ipratropium bromide See Rx Instructions .ROUTE .COMPLEX 01/19/21 01/19/21 History liraglutide [Victoza 3-Pj] 1.8 mg SUBCUT DAILY 01/19/21 01/19/21 History mepolizumab [Nucala] 100 mg SUBCUT Q4W 01/19/21 01/19/21 History metformin 1,000 mg PO BID 01/19/21 01/19/21 History metoprolol tartrate 75 mg PO BID 01/19/21 01/19/21 History mirabegron [Myrbetriq] 50 mg PO DAILY 01/19/21 01/19/21 History montelukast 10 mg PO DAILY 01/19/21 01/19/21 History nystatin 1 applic TOPICAL TID 01/19/21 01/19/21 History omeprazole 40 mg PO DAILY 01/19/21 01/19/21 History pregabalin 150 mg PO BID 01/19/21 01/19/21 History sitagliptin [Januvia] 100 mg PO DAILY 01/19/21 01/19/21 History torsemide 20 mg PO DAILY 01/19/21 01/19/21 History verapamil 240 mg PO HS 01/19/21 01/19/21 History zolpidem [Ambien] 10 mg PO DAILY 01/19/21 01/19/21 History Exam Narrative Exam Narrative: Elderly obese male who was alert and oriented to person place and circumstance. He sitting up at the bedside talking with his nurse requesting to watch Western movies. Neck is supple no JVD normal carotid pulses Lungs are clear to auscultation there is no expiratory nor is there any inspiratory wheezing and no rhonchi or rales. Heart is regular but tachycardic and I did not appreciate a murmur rub Abdomen is obese soft nontender Lower extremities with trace to 1+ pedal and ankle edema. Neuro exam is grossly intact no facial asymmetry no dysarthric speech he has normal range of motion and normal strength in both upper and lower extremities. Results Labs Result diagrams: 01/20/21 06:51 01/20/21 06:51 Labs: Laboratory Results - last 24 hr 01/19/21 01/19/21 01/19/21 19:56 19:56 19:56 WBC 12.83 H RBC 4.02 L Hgb 13.7 Hct 41.6 MCV 103.5 H MCH 34.1 H MCHC 32.9 RDW 12.8 Plt Count 279 MPV 10.2 Immature Gran % 0.5 Neutrophils % 86.5 Lymphocytes % 5.9 Monocytes % 6.9 Eosinophils % 0.0 Basophils % 0.2 Nucleated RBC % 0 Absolute Neutrophils 11.10 H Absolute Lymphocytes 0.76 L Absolute Monocytes 0.89 H Absolute Eosinophils 0.00 Absolute Basophils 0.03 Sodium 146 H Potassium 4.4 Chloride 105 Carbon Dioxide 33.3 H Anion Gap 7.7 BUN 33 H Creatinine 1.4 H Estimated GFR/1.73 m2 49.82 Glucose 136 H Calcium 9.6 Magnesium 1.7 L Total Bilirubin 0.5 AST 11 L ALT 22 Alkaline Phosphatase 58 Troponin I < 0.05 NT-Pro-B Natriuret Pep 48 Total Protein 8.0 Albumin 3.9 Urine Color Urine Clarity Urine pH Ur Specific [place] Urine Protein Urine Ketones Urine Blood Urine Nitrite Urine Bilirubin Urine Urobilinogen Ur Leukocyte Esterase Urine RBC Urine WBC Ur Epithelial Cells Urine Crystals Urine Bacteria Urine Casts Urine Mucus Ur Culture Indicated? Urine Glucose COVID-19 Source 01/19/21 01/19/21 01/19/21 21:28 22:15 22:21 WBC RBC Hgb Hct MCV MCH MCHC RDW Plt Count MPV Immature Gran % Neutrophils % Lymphocytes % Monocytes % Eosinophils % Basophils % Nucleated RBC % Absolute Neutrophils Absolute Lymphocytes Absolute Monocytes Absolute Eosinophils Absolute Basophils Sodium Potassium Chloride Carbon Dioxide Anion Gap BUN Creatinine Estimated GFR/1.73 m2 Glucose Calcium Magnesium Total Bilirubin AST ALT Alkaline Phosphatase Troponin I < 0.05 NT-Pro-B Natriuret Pep Total Protein Albumin Urine Color Yellow Urine Clarity Cloudy Urine pH 8.5 H Ur Specific [place] 1.015 Urine Protein 30 H Urine Ketones Trace H Urine Blood Small H Urine Nitrite Positive H Urine Bilirubin Negative Urine Urobilinogen 1.0 H Ur Leukocyte Esterase Small H Urine RBC Negative Urine WBC >50 H Ur Epithelial Cells Negative Urine Crystals Negative Urine Bacteria Many Urine Casts Negative Urine Mucus Negative Ur Culture Indicated? Yes Urine Glucose Negative COVID-19 Source Nasal/Nares Last Vital Signs Temp 36.8 C 01/19/21 20:20 Pulse 108 H 01/19/21 22:31 Resp 26 H 01/19/21 22:31 BP 132/66 01/19/21 22:31 Pulse Ox 94 01/19/21 22:31
[2021-01-19 23:06] LABS: Lactate 2.2 mmol/L (0.6-1.4)
[2021-01-19] MEDS: cefTRIAXone 1 GM/50 ML BAG IVPB (23:16)
[2021-01-19 23:34] LABS: Procalcitonin 0.1 ng/mL
[2021-01-19 23:35] LABS: COVID-19 PCR Negative (Negative)
[2021-01-20] VITALS (9 sets, daily range): BP systolic 125–160; BP diastolic 73–84; PULSE 84–112; RESP 16–18; TEMP 36.4–37.5; O2SAT 95–100
[2021-01-20] MEDS: Metoprolol 25 MG TAB 75 MG PO ×3 (00:51→20:26)
[2021-01-20] MEDS: Normal Saline 500 ML 30 ML IV (00:52)
[2021-01-20] MEDS: cefTRIAXone 1,000 MG in Normal Saline 50 ML 100 MG IVPB (00:52)
[2021-01-20] MEDS: Lactated Ringers 1,000 ML 150 ML IV ×4 (00:52→23:41)
[2021-01-20 07:00] LABS: Lactate 1.4 mmol/L (0.6-1.4)
[2021-01-20 07:11] LABS: Anion Gap 7.2 mmol/L (3-11); BUN 31 mg/dL (7-18); CO2 31.8 mmol/L (21.0-32.0); CREATININE 1.3 mg/dL (0.70-1.30); Calcium 8.8 mg/dL (8.5-10.1); Chloride 105 mmol/L (98-107); Estimated GFR 54.26 (mL/min/1.73m2); Glucose 145 mg/dL (74-106); Magnesium 1.7 mg/dL (1.8-2.4); Potassium 3.9 mmol/L (3.5-5.1); Sodium 144 mmol/L (136-145)
[2021-01-20 07:13] LABS: Abs Immature Grans 0.05 10^3/uL (0.0-0.06); Absolute Basophil Count 0.02 10^3/uL (0.0-0.2); Absolute Eosinophil Count 0.01 10^3/uL (0.0-0.7); Absolute Lymphocyte Count 1.09 10^3/uL (1.2-3.4); Absolute Monocyte Count 1.14 10^3/uL (0.1-0.8); Basophils % 0.2; Eosinophils % 0.1; HCT 36.9 % (40.0-50.0); Immature Grans % 0.4; Lymphocytes % 9.1; MCH 33.7 pg (27.0-33.0); MCHC 32.5 % (32.0-36.0); MCV 103.7 fL (80-95); MPV 10.6 fL (8.0-11.0); Monocytes % 9.5; Neutrophils % 80.7; Nucleated RBC 0 %; Platelet Count 233 10^3/uL (130-400); RBC 3.56 10^6/uL (4.36-5.78); WBC 12.03 10^3/uL (4.4-10.8)
[2021-01-20 07:15] LABS: Absolute Neutrophil Count 9.71 10^3/uL (1.2-6.7)
[2021-01-20] MEDS: Cetirizine 10 MG TAB PO (07:44)
[2021-01-20] MEDS: Mirabegron 50 MG TABCR PO (07:44)
[2021-01-20] MEDS: Enoxaparin 40 MG/0.4 ML SYR SC (07:44)
[2021-01-20] MEDS: Aspirin E.C. 81 MG TABEC PO (07:44)
[2021-01-20] MEDS: Pregabalin 50 MG CAP 150 MG PO ×2 (07:44→20:26)
[2021-01-20] MEDS: Omeprazole 20 MG CAPCR 40 MG PO (07:44)
[2021-01-20] MEDS: Lactobacillus Acidophilus CAP 1 CAP PO (07:44)
[2021-01-20] MEDS: Clotrimazole 1% 15 GM TUBE TP ×3 (09:28→20:27)
[2021-01-20] MEDS: Nystatin POWDER 60 GM JAR TP ×3 (09:28→20:27)
[2021-01-20] MEDS: Diclofenac 1% Gel 100 GM TUBE TP ×2 (09:28→20:27)
--- NOTE | 2021-01-20 16:31 | PGE_ITS ---
Date of Service Date of service: 01/20/21 Time of Service: 16:31 Assessment and Plan Assessment and plan (1) Sepsis: Status: Acute Assessment and plan: Patient appears to be out of danger of sepsis although he has had an incomplete response to the Rocephin. I will change him to Meropenem and repeat his labs in the a.m. If this is not an ESBL then I will downgrade his antibiotics Qualifiers: Sepsis type: sepsis due to unspecified organism Sepsis acute organ dys function status: with acute organ dysfunction Severe sepsis acute organ dysfunction type: acute renal failure Acute renal failure type: with acute tubular necrosis Severe sepsis shock status: without septic shock Qualified Code(s): A41.9 - Sepsis, unspecified organism; R65.20 - Severe sepsis without septic shock; N17.0 - Acute kidney failure with tubular necrosis (2) Altered mental status, unspecified: Status: Resolved Assessment and plan: Mental status seems to improve with IV fluids. Continue antibiotics and IV fluids. Qualifiers: Altered mental status type: transient alteration of awareness Qualified Code(s): R40.4 - Transient alteration of awareness (3) UTI (urinary tract infection): Status: Acute Assessment and plan: Switch Rocephin to Meropenem, monitor PVR and check renal US on Friday Qualifiers: Urinary tract infection type: site unspecified Hematuria presence: with hematuria Qualified Code(s): N39.0 - Urinary tract infection, site not specified; R31.9 - Hematuria, unspecified (4) Acute kidney injury (nontraumatic): Status: Acute Assessment and plan: Secondary to UTI dehydration. Continue gentle IV fluid hydration and monitor urine output and monitor BMP. (5) Dehydration: Status: Acute Assessment and plan: IV fluids as above (6) DVT prophylaxis: Status: Acute Assessment and plan: Renal adjusted dosing of Lovenox Subjective Subjective Interval history since last seen: Patient denies any pain or dyspnea and no nausea or vomiting although appetite has been poor. I met w/ him and his this afternoon. He still has leukocytosis of 12,000 despite having been on Roce phin. 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 His indicated that he has a followup w/ his urologist at [facility] on Friday. I am changing his Rocephin to Meropenem out of concern for potential ESBL Proteus infection (seen in 50% of Proteus infections), particularly since this is his 4th one in as many months. If he remains hospitalized through Friday then I will image his kidneys w/ U.S. and call his urologist. I have also asked nursing to perform pre/post void bladder volume assessments to see if he is retaining significant urine. His says that when he see his urologist they always check his post void bladder volume and have not found high residuals. Exam Narrative Exam Narrative: Alert, oriented, laughing, sitting up in his chair Lungs: clear Heart: RRRR Abdomen: soft, nontender, nondistended, normal bowel sounds Objective Last Vital Signs Temp 36.9 C 01/20/21 11:55 Pulse 87 01/20/21 11:55 Resp 17 01/20/21 11:55 BP 131/82 01/20/21 11:55 Pulse Ox 98 01/20/21 11:55 Laboratory Results - last 24 hr 01/19/21 01/19/21 01/19/21 19:56 19:56 19:56 WBC 12.83 H RBC 4.02 L Hgb 13.7 Hct 41.6 MCV 103.5 H MCH 34.1 H MCHC 32.9 RDW 12.8 Plt Count 279 MPV 10.2 Immature Gran % 0.5 Neutrophils % 86.5 Lymphocytes % 5.9 Monocytes % 6.9 Eosinophils % 0.0 Basophils % 0.2 Nucleated RBC % 0 Absolute Neutrophils 11.10 H Absolute Lymphocytes 0.76 L Absolute Monocytes 0.89 H Absolute Eosinophils 0.00 Absolute Basophils 0.03 VBG Lactate Sodium 146 H Potassium 4.4 Chloride 105 Carbon Dioxide 33.3 H Anion Gap 7.7 BUN 33 H Creatinine 1.4 H Estimated GFR/1.73 m2 49.82 Glucose 136 H Calcium 9.6 Magnesium 1.7 L Total Bilirubin 0.5 AST 11 L ALT 22 Alkaline Phosphatase 58 Troponin I < 0.05 NT-Pro-B Natriuret Pep 48 Total Protein 8.0 Albumin 3.9 Procalcitonin Urine Color Urine Clarity Urine pH Ur Specific [place] Urine Protein Urine Ketones Urine Blood Urine Nitrite Urine Bilirubin Urine Urobilinogen Ur Leukocyte Esterase Urine RBC Urine WBC Ur Epithelial Cells Urine Crystals Urine Bacteria Urine Casts Urine Mucus Ur Culture Indicated? Urine Glucose COVID-19 Source SARS-CoV-2 (PCR) 01/19/21 01/19/2101/19/21 21:28 22:15 22:21 WBC RBC Hgb Hct MCV MCH MCHC RDW Plt Count MPV Immature Gran % Neutrophils % Lymphocytes % Monocytes % Eosinophils % Basophils % Nucleated RBC % Absolute Neutrophils Absolute Lymphocytes Absolute Monocytes Absolute Eosinophils Absolute Basophils VBG Lactate Sodium Potassium Chloride Carbon Dioxide Anion Gap BUN Creatinine Estimated GFR/1.73 m2 Glucose Calcium Magnesium Total Bilirubin AST ALT Alkaline Phosphatase Troponin I < 0.05 NT-Pro-B Natriuret Pep Total Protein Albumin Procalcitonin Urine Color Yellow Urine Clarity Cloudy Urine pH 8.5 H Ur Specific [place] 1.015 Urine Protein 30 H Urine Ketones Trace H Urine Blood Small H Urine Nitrite Positive H Urine Bilirubin Negative Urine Urobilinogen 1.0 H Ur Leukocyte Esterase Small H Urine RBC Negative Urine WBC >50 H Ur Epithelial Cells Negative Urine Crystals Negative Urine Bacteria Many Urine Casts Negative Urine Mucus Negative Ur Culture Indicated? Yes Urine Glucose Negative COVID-19 Source Nasal/Nares SARS-CoV-2 (PCR) Negative 01/19/21 01/20/21 01/20/21 22:50 06:51 06:51 WBC 12.03 H RBC 3.56 L Hgb 12.0 L Hct 36.9 L MCV 103.7 H MCH 33.7 H MCHC 32.5 RDW 13.0 Plt Count 233 MPV 10.6 Immature Gran % 0.4 Neutrophils % 80.7 Lymphocytes % 9.1 Monocytes % 9.5 Eosinophils % 0.1 Basophils % 0.2 Nucleated RBC % 0 Absolute Neutrophils 9.71 H Absolute Lymphocytes 1.09 L Absolute Monocytes 1.14 H Absolute Eosinophils 0.01 Absolute Basophils 0.02 VBG Lactate 2.2 H* Sodium 144 Potassium 3.9 Chloride 105 Carbon Dioxide 31.8 Anion Gap 7.2 BUN 31 H Creatinine 1.3 Estimated GFR/1.73 m2 54.26 Glucose 145 H Calcium 8.8 Magnesium 1.7 L Total Bilirubin AST ALT Alkaline Phosphatase Troponin I NT-Pro-B Natriuret Pep Total Protein Albumin Procalcitonin 0.1 Urine Color Urine Clarity Urine pH Ur Specific [place] Urine Protein Urine Ketones Urine Blood Urine Nitrite Urine Bilirubin Urine Urobilinogen Ur Leukocyte Esterase Urine RBC Urine WBC Ur Epithelial Cells Urine Crystals Urine Bacteria Urine Casts Urine Mucus Ur Culture Indicated? Urine Glucose COVID-19 Source SARS-CoV-2 (PCR) 01/20/21 06:51 WBC RBC Hgb Hct MCV MCH MCHC RDW Plt Count MPV Immature Gran % Neutrophils % Lymphocytes % Monocytes % Eosinophils % Basophils % Nucleated RBC % Absolute Neutrophils Absolute Lymphocytes Absolute Monocytes Absolute Eosinophils Absolute Basophils VBG Lactate 1.4 Sodium Potassium Chloride Carbon Dioxide Anion Gap BUN Creatinine Estimated GFR/1.73 m2 Glucose Calcium Magnesium Total Bilirubin AST ALT Alkaline Phosphatase Troponin I NT-Pro-B Natriuret Pep Total Protein Albumin Procalcitonin Urine Color Urine Clarity Urine pH Ur Specific [place] Urine Protein Urine Ketones Urine Blood Urine Nitrite Urine Bilirubin Urine Urobilinogen Ur Leukocyte Esterase Urine RBC Urine WBC Ur Epithelial Cells Urine Crystals Urine Bacteria Urine Casts Urine Mucus Ur Culture Indicated? Urine Glucose COVID-19 Source SARS-CoV-2 (PCR)
[2021-01-21 02:46] VITALS: BP 149/86; PULSE 91; RESP 20; TEMP 36.8; O2SAT 96
[2021-01-21 07:30] VITALS: BP 148/82; PULSE 88; RESP 18; TEMP 36.8; O2SAT 95
[2021-01-21 07:33] LABS: Abs Immature Grans 0.08 10^3/uL (0.0-0.06); Absolute Basophil Count 0.02 10^3/uL (0.0-0.2); Absolute Eosinophil Count 0.01 10^3/uL (0.0-0.7); Absolute Monocyte Count 0.86 10^3/uL (0.1-0.8); Basophils % 0.2; Eosinophils % 0.1; HCT 34.7 % (40.0-50.0); HGB 11.2 g/dL (13.5-17.5); Immature Grans % 0.7; Lymphocytes % 8.3; MCH 33.6 pg (27.0-33.0); MCHC 32.3 % (32.0-36.0); MCV 104.2 fL (80-95); MPV 10.3 fL (8.0-11.0); Monocytes % 7.7; Nucleated RBC 0 %; Platelet Count 240 10^3/uL (130-400); RBC 3.33 10^6/uL (4.36-5.78); RDW 12.9 % (11.8-14.1); RDW-SD 49.3 fL; WBC 11.14 10^3/uL (4.4-10.8)
[2021-01-21] MEDS: Omeprazole 20 MG CAPCR 40 MG PO (07:51)
[2021-01-21] MEDS: Cetirizine 10 MG TAB PO (07:51)
[2021-01-21] MEDS: Aspirin E.C. 81 MG TABEC PO (07:51)
[2021-01-21] MEDS: Enoxaparin 40 MG/0.4 ML SYR SC (07:51)
[2021-01-21] MEDS: Metoprolol 25 MG TAB 75 MG PO ×2 (07:51→20:30)
[2021-01-21] MEDS: Mirabegron 50 MG TABCR PO (07:51)
[2021-01-21] MEDS: Normal Saline Flush 10 ML SYR IVP ×2 (07:51→23:37)
[2021-01-21] MEDS: Pregabalin 50 MG CAP 150 MG PO ×2 (07:51→20:29)
[2021-01-21] MEDS: Diclofenac 1% Gel 100 GM TUBE TP ×2 (07:52→20:31)
[2021-01-21] MEDS: Nystatin POWDER 60 GM JAR TP ×3 (07:52→20:28)
[2021-01-21] MEDS: Lactobacillus Acidophilus CAP 1 CAP PO (07:52)
[2021-01-21 07:53] LABS: Absolute Lymphocyte Count 0.92 10^3/uL (1.2-3.4); Absolute Neutrophil Count 9.25 10^3/uL (1.2-6.7)
[2021-01-21] MEDS: Clotrimazole 1% 15 GM TUBE TP ×3 (07:53→20:28)
[2021-01-21] MEDS: Lactated Ringers 1,000 ML 150 ML IV (07:55)
[2021-01-21 08:05] LABS: Anion Gap 7.4 mmol/L (3-11); BUN 21 mg/dL (7-18); C-Reactive Protein 21.66 mg/dL (0.0-0.3); CO2 29.6 mmol/L (21.0-32.0); CREATININE 1.1 mg/dL (0.70-1.30); Calcium 8.3 mg/dL (8.5-10.1); Chloride 106 mmol/L (98-107); Glucose 50 mg/dL (74-106); Potassium 3.4 mmol/L (3.5-5.1); Sodium 143 mmol/L (136-145)
[2021-01-21 11:30] VITALS: BP 116/75; PULSE 77; RESP 17; TEMP 37.2; O2SAT 95
[2021-01-21] MEDS: Potassium Chloride 20 MEQ TABCR 40 MEQ PO (12:27)
[2021-01-21] MEDS: Fosfomycin Tromethamine 3 GM PACKET PO (13:15)
--- NOTE | 2021-01-21 13:28 | PGE_ITS ---
Date of Service Date of service: 01/21/21 Time of Service: 13:28 Assessment and Plan Assessment and plan (1) Sepsis: Start date: 01/21/21 Start time: 13:40 Status: Acute Assessment and plan: Renal u/s tomorrow blood cultures negative as this time Sensitives have come back pansensitive, he is a candidate for fosfamycin po x 3 doses therefore he will receive one every 72 hours times 3 doses due to complicated UTI. He also has a sphincter that was spoken about he should empty more frequently. It was suggested that perhaps he should empty every 2 hours. He could possibly be discharged tomorrow Qualifiers: Sepsis type: sepsis due to unspecified organism Sepsis acute organ dysfunction status: with acute organ dysfunction Severe sepsis acute organ d ysfunction type: acute renal failure Acute renal failure type: with acute tubular necrosis Severe sepsis shock status: without septic shock Qualified Code(s): A41.9 - Sepsis, unspecified organism; R65.20 - Severe sepsis without septic shock; N17.0 - Acute kidney failure with tubular necrosis (2) UTI (urinary tract infection): Start date: 01/21/21 Start time: 13:49 Status: Acute Assessment and plan: as above. Qualifiers: Urinary tract infection type: site unspecified Hematuria presence: with hematuria Qualified Code(s): N39.0 - Urinary tract infection, site not specified; R31.9 - Hematuria, unspecified (3) Altered mental status, unspecified: Start date: 01/21/21 Start time: 13:47 Status: Resolved Assessment and plan: Resolved. IVF dcd Qualifiers: Altered mental status type: transient alteration of awareness Qualified Code(s): R40.4 - Transient alteration of awareness (4) Acute kidney injury (nontraumatic): Start date: 01/21/21 Start time: 13:51 Status: Resolved Assessment and plan: BUN appears to be baseline Creatinine has normalized IVF dcd. (5) Dehydration: Start date: 01/21/21 Start time: 13:52 Status: Resolved Assessment and plan: IVF dcd (6) Hypokalemia: Start date: 01/21/21 Start time: 13:54 Status: Acute Assessment and plan: repleted with po monitor and recheck in am (7) DVT prophylaxis: Start date: 01/21/21 Start time: 13:56 Status: Acute Assessment and plan: Renal adjusted dosing of Lovenox discussed with Dr. Brown Subjective Subjective Patient reports: no new complaints Interval history since last seen: Patient feeling better. WBC improving, sensitivities reveal pansensitive to everything but nutrifrantion. Therefore he was placed on fosfamycin po x 3 doses due to complicated UTI. If WBC is normalized tomorrow he could likely be discharged home. He denies CP, SOB , N/V/D. Exam Narrative Exam Narrative: Alert, oriented, laughing, sitting up in his chair Lungs: clear Heart: RRRR Abdomen: soft, nontender, nondistended, normal bowel sounds Objective Last Vital Signs Temp 36.8 C 01/21/21 07:30 Pulse 88 01/21/21 07:30 Resp 18 01/21/21 07:30 BP 148/82 H 01/21/21 07:30 Pulse Ox 95 01/21/21 07:30 Laboratory Results - last 24 hr 01/21/21 01/21/21 06:43 06:43 WBC 11.14 H RBC 3.33 L Hgb 11.2 L Hct 34.7 L MCV 104.2 H MCH 33.6 H MCHC 32.3 RDW 12.9 Plt Count 240 MPV 10.3 Immature Gran % 0.7 Neutrophils % 83.0 Lymphocytes % 8.3 Monocytes % 7.7 Eosinophils % 0.1 Basophils % 0.2 Nucleated RBC % 0 Absolute Neutrophils 9.25 H Absolute Lymphocytes 0.92 L Absolute Monocytes 0.86 H Absolute Eosinophils 0.01 Absolute Basophils 0.02 Sodium 143 Potassium 3.4 L Chloride 106 Carbon Dioxide 29.6 Anion Gap 7.4 BUN 21 H D Creatinine 1.1 Estimated GFR/1.73 m2 >= 60.00 Glucose 50 L D Calcium 8.3 L C-Reactive Protein 21.66 H
[2021-01-21 15:30] VITALS: BP 137/80; PULSE 89; RESP 18; TEMP 37.4; O2SAT 97
[2021-01-21 20:35] VITALS: BP 147/69; PULSE 98; RESP 20; TEMP 37.6; O2SAT 96
[2021-01-21 23:37] VITALS: TEMP 37.5
[2021-01-21] MEDS: Acetaminophen 325 MG TAB PO (23:37)
[2021-01-22] VITALS (7 sets, daily range): BP systolic 135–161; BP diastolic 76–99; PULSE 89–102; RESP 16–20; TEMP 36.3–37.9; O2SAT 95–98
[2021-01-22] MEDS: Acetaminophen 325 MG TAB PO (03:43)
[2021-01-22] MEDS: Normal Saline Flush 10 ML SYR IVP (07:37)
[2021-01-22] MEDS: Omeprazole 20 MG CAPCR 40 MG PO (07:37)
[2021-01-22] MEDS: Enoxaparin 40 MG/0.4 ML SYR SC (07:37)
[2021-01-22] MEDS: Cetirizine 10 MG TAB PO (07:37)
[2021-01-22] MEDS: Metoprolol 25 MG TAB 75 MG PO ×2 (07:37→22:02)
[2021-01-22] MEDS: Mirabegron 50 MG TABCR PO (07:37)
[2021-01-22] MEDS: Lactobacillus Acidophilus CAP 1 CAP PO (07:37)
[2021-01-22] MEDS: Pregabalin 50 MG CAP 150 MG PO ×2 (07:37→22:02)
[2021-01-22] MEDS: Aspirin E.C. 81 MG TABEC PO (07:37)
[2021-01-22] MEDS: Clotrimazole 1% 15 GM TUBE TP ×3 (07:38→22:05)
[2021-01-22] MEDS: Nystatin POWDER 60 GM JAR TP ×3 (07:38→22:05)
[2021-01-22] MEDS: Diclofenac 1% Gel 100 GM TUBE TP ×2 (07:41→22:05)
[2021-01-22] MEDS: Potassium Chloride 20 MEQ TABCR 40 MEQ PO (10:23)
[2021-01-22 11:12] LABS: Abs Immature Grans 0.16 10^3/uL (0.0-0.06); Absolute Basophil Count 0.02 10^3/uL (0.0-0.2); Absolute Lymphocyte Count 0.63 10^3/uL (1.2-3.4); Absolute Monocyte Count 1.03 10^3/uL (0.1-0.8); Basophils % 0.1; HCT 37.3 % (40.0-50.0); HGB 12.4 g/dL (13.5-17.5); MCH 34.1 pg (27.0-33.0); MCHC 33.2 % (32.0-36.0); MCV 102.5 fL (80-95); MPV 10.2 fL (8.0-11.0); Monocytes % 6.6; Neutrophils % 88.3; Nucleated RBC 0 %; Platelet Count 270 10^3/uL (130-400); RBC 3.64 10^6/uL (4.36-5.78); RDW 12.7 % (11.8-14.1); RDW-SD 47.8 fL; WBC 15.67 10^3/uL (4.4-10.8)
[2021-01-22 11:14] LABS: Absolute Neutrophil Count 13.84 10^3/uL (1.2-6.7)
[2021-01-22 11:21] LABS: Anion Gap 7.9 mmol/L (3-11); BUN 28 mg/dL (7-18); CO2 29.1 mmol/L (21.0-32.0); CREATININE 1.8 mg/dL (0.70-1.30); Calcium 8.8 mg/dL (8.5-10.1); Chloride 105 mmol/L (98-107); Estimated GFR 37.27 (mL/min/1.73m2); Glucose 142 mg/dL (74-106); Magnesium 1.8 mg/dL (1.8-2.4); Potassium 4.2 mmol/L (3.5-5.1); Sodium 142 mmol/L (136-145)
--- NOTE | 2021-01-22 15:30 | DI.RAD_ITS ---
Exam(s) XR ABD FLAT UPRIGHT PA CHEST EXAM: XR ABD FLAT UPRIGHT PA CHEST CLINICAL HISTORY: abdominal pain TECHNIQUE: COMPARISON: CR,XR XR CHEST 2V PA LATERAL from 01/19/2021 FINDINGS: Upright view of the chest shows no evidence of cardiomegaly. Lungs appear clear and expanded. Multiple views of the abdomen were obtained. Bowel gas pattern is within normal limits. No gross or ganomegaly. No free intraperitoneal air. IMPRESSION: Negative examination of the chest and abdomen. RADIATION DOSE DELIVERED: Total DLP
--- NOTE | 2021-01-22 15:32 | W.PM.PROGNOT ---
Date of Service Date of service: 01/22/21 Time of Service: 15:33 Assessment and Plan Assessment and plan (1) UTI (urinary tract infection): Status: Acute Assessment and plan: patient's urine culture once again is growing Proteus mirabilis which is pansensitive except to Nitrofurantoin. This is the same organism he has grown each time for past 4 months. He was taken off Meropenem (appropriately given the pansensitivites) and because he was doing better yesterday, my N.P. put him on Fosfomycin and plan was for discharge today. However, he is complaining of abdominal pains and not eating and his WBC went up to 15,000 and his creatinine 1.8 and BUN 28. I did POCUS bladder scan and he does not have a large residual. I will resume iv antibiotics (Rocephin) and put him back on iv fluids and consult w/ urology. Given his recurrent Proteus infections, I will get renal US and bladder ultrasound to asses for stones Qualifiers: Urinary tract infection type: site unspecified Hematuria presence: with hematuria Qualified Code(s): N39.0 - Urinary tract infection, site not specified; R31.9 - Hematuria, unspecified (2) Acute kidney injury (nontraumatic): Status: Resolved Assessment and plan: Secondary to UTI dehydration. resume iv fluids (3) Altered mental status, unspecified: Status: Resolved Assessment and plan: Mental status seems to improve with IV fluids. Continue antibiotics and IV fluids. Qualifiers: Altered mental status type: transient alteration of awareness Qualified Code(s): R40.4 - Transient alteration of awareness (4) Dehydration: Status: Resolved Assessment and plan: IV fluids as above (5) DVT prophylaxis: Status: Acute Assessment and plan: Renal adjusted dosing of Lovenox (6) Abdominal pain: Status: Acute Assessment and plan: unclear that this is urologic cause for his pain. I will check KUB and upright xray to look for ileus or SBO given that he has had little in BM (smalll smears); also renal US to rule out obstructive uropathy Qualifiers: Abdominal location: lower abdomen, unspecified Qualified Code(s): R10.30 - Lower abdominal pain, unspecified Subjective Subjective Interval history since last seen: patient complaining of no appetite, did not sleep last night. Reportedly up to the bathroom multiple times last night w/ urge to defecate. Now complaining of lower abdominal pains. I did POCUS bladder evaluation after he went to bathroom and he has no significant residual in his bladder. Exam Narrative Exam Narrative: Patient is sleepy but responsive and answers appropriately; he is hard of hearing and his answers most of the questions for him Lungs: clear Heart: RRR Abdomen: soft, +bowel sounds, mild tenderness over suprapubic and RLQ w/out gurading or rebound tenderness. Objective Last Vital Signs Temp 36.5 C 01/22/21 11:30 Pulse 89 01/22/21 11:30 Resp 18 01/22/21 11:30 BP 151/96 H 01/22/21 11:30 Pulse Ox 98 01/22/21 11:30 Laboratory Results - last 24 hr 01/22/21 01/22/21 01/22/21 10:55 10:55 10:55 WBC 15.67 H RBC 3.64 L Hgb 12.4 L Hct 37.3 L MCV 102.5 H MCH 34.1 H MCHC 33.2 RDW 12.7 Plt Count 270 MPV 10.2 Immature Gran % 1.0 Neutrophils % 88.3 Lymphocytes % 4.0 Monocytes % 6.6 Eosinophils % 0.0 Basophils % 0.1 Nucleated RBC % 0 Absolute Neutrophils 13.84 H Absolute Lymphocytes 0.63 L Absolute Monocytes 1.03 H Absolute Eosinophils 0.00 Absolute Basophils 0.02 Sodium 142 Potassium 4.2 D Chloride 105 Carbon Dioxide 29.1 Anion Gap 7.9 BUN 28 H Creatinine 1.8 H D Estimated GFR/1.73 m2 37.27 Glucose 142 H D Calcium 8.8 Magnesium 1.8
--- NOTE | 2021-01-22 17:07 | DI.VRAD_ITS ---
PROCEDURE INFORMATION: Exam: XR Complete Acute Abdomen Series Including Chest Exam date and time: 01/22/2021 3:39 PM Age: 70 years old Clinical indication: Abdominal pain TECHNIQUE: Imaging protocol: XR complete acute abdomen series, including 2 or more views of the abdomen and a single view chest. COMPARISON: CR XR CHEST 2V PA LATERAL 01/19/2021 8:38 PM FINDINGS: Lungs: Normal. No consolidation. Pleural spaces: Normal. No pleural effusions. No pneumothorax. Heart/Mediastinum: The heart is moderately enlarged. Gastrointestinal tract: No bowel obstruction or significant bowel wall thickening. Intraperitoneal space: There is no free intraperitoneal air. Vasculature: Calcified aortic knob. Bones/joints: No acute skeletal abnormality or aggressive osseous lesion. Soft tissues: Normal. IMPRESSION: 1. Negative for acute thoracic pathology. 2. Negative for acute abdominopelvic pathology. Dictated and Authenticated by: Manjit Ruiz MD. Ordering:[facility] Kevin Nunez MD
[2021-01-22] MEDS: Polyethylene Glycol 3350 17 GM PACKET PO (17:17)
[2021-01-22] MEDS: Methylnaltrexone 12 MG/0.6 ML VIAL SC (17:17)
[2021-01-22] MEDS: cefTRIAXone 2 GM/50 ML BAG IVPB (17:17)
--- NOTE | 2021-01-22 17:22 | PDOC.CMIN ---
- If Service Date Differs Date of service: 01/22/21 Time of Service: 17:28 Care Management Initial Assess REASON FOR HOSPITALIZATION:: Urosepsis PAST MEDICAL HISTORY/PAST SURGICAL HISTORY:: Medical History. Diabetes. Surgical History. History of bilateral knee replacement. History of implantation of artificial sphincter PREVIOUS FUNCTIONAL STATUS/SOCIAL/FAMILY SUPPORTS:: Joon lives in [place] with his , Pita. Their children live nearby and are helpful and supportive. Joon is retired, and is mostly independent at baseline, although his supports him as he has had some medical issues recently. CURRENT FUNCTIONAL STATUS:: Joon was sitting up in his chair when CM met with him. He did not engage well in conversation, as he fell asleep periodically. His , Pita, was in the room and was helpful in attaining information. She requested a Patient Assistance packet, which CM provided. She stated that he usually has his care at [facility]. She requested to speak with the provider, and CM requested at that time that his MD visit with them together. Per report, he has had abdominal pain today, and did not sleep well last night. He continues to be monitored. Pita stated that she would be agreeable to HH services, although he is currently engaged in out patient PT, which he would not be able to continue with HH services. CM will continue to follow. ADVANCE DIRECTIVES:: None on file. CM will offer forms. Has patient been provided with info about the portal/API?: Yes Did the patient sign up for the portal?: No CODE STATUS:: Full Code INSURANCE COVERAGE / FINANCIAL ISSUES:: [facility]/ [employer] CURRENT HOME/COMMUNITY SERVICES/EQUIPMENT:: Out patient PT. PRIMARY CARE PHYSICIAN:: Jax Higginbotham POTENTIAL DISCHARGE NEEDS:: Evaluations for further needs, follow up appointments. PATIENT/FAMILY EDUCATION NEEDS:: Review discharge instructions regarding activity levels and medications, discussion of self care needs including ask me three. ANTICIPATED BARRIERS TO DISCHARGE:: None identified. TRANSPORTATION:: Via private vehicle by his . PLAN:: Anticipate Joon will return home when medically cleared. His will drive him home via private vehicle. He will follow up with his PCP and discharge plan of care. CM will continue to follow.
--- NOTE | 2021-01-22 18:17 | UCONE_ITS ---
Date of service: 01/22/21 Time of Service: 16:17 Assessment and Plan Assessment and plan (1) UTI (urinary tract infection): Status: Acute Assessment and plan: The recurrent infections with the same organisms raises the concern for a nidus of infection somewhere in the urinary tract. When I mentioned this possibility to the patient's , she stated that the same possibility was Dr Ballard's concern - hence the cysto and CT scan. Possible sites for a nidus would include a struvite stone in the kidneys or bladder, an eroded AUS or recurrent prostate abcess. I agree with changing his antibiotic coverage to get better prostate tissue penetration. Once we see today's renal US and make sure the patient does not require a ureteral stent, I will call Dr Ballard and discuss this gentleman's case. Qualifiers: Hematuria presence: with hematuria Urinary tract infection type: site unspecified Qualified Code(s): N39.0 - Urinary tract infection, site not specified; R31.9 - Hematuria, unspecified History of Present Illness History of Present Illness Chief Complaint: Recurrent UTI Narrative: This is a 70 year old man who has an extensive urologic history. His care was provided at other facilities, but I was able to piece together the following history from his and from some outside EMR. The patient is not able to provide any history at this time. He was diagnosed with adenocarcinoma of the prostate about 3 years ago. I do no have access to his pathology results. He was treated with external beam radiation. At some point, he developed urinary retention and the patient's recall having to perform CIC for him. Following treatment, he developed a prostate abcess in 2017 (I do not have access to any cultures from that time frame). He had an attempt at percutaneous drainage, but ultimately required TURP 03/2018. 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 I can find a negative urine culture from 08/2018 and negative blood cultures from 12/2018 and 05/2019. He had an artificial urinary spincter placed 05/[address] Ballard at [facility]. The patient's reports that initially, the patient was continent, but lately, he has had breakthrough incontinence in spite of the AUS. He is now presenting with recurrent Proteus UTI (4 positive urine cultures since 10/2020). The patient's describes a recent cystoscopy in Dr Ballard's office which showed no cuff erosion. The patient also reportedly had a CT at [facility] that showed kidney stones. No treatment was offered at that time and the patient's stated that Dr Ballard did not seem overly concerned about the stones. Review of Systems Unobtainable due to mental status [facility] Medical History (Updated 01/22/21 @ 15:57 by Enrique Brown) Diabetes Surgical History (Updated 01/19/21 @ 20:28 by Tish Lr) History of bilateral knee replacement History of implantation of artificial sphincter Social History Smoking/Tobacco Use Status: Never Smoking risk assessment performed?: Yes Alcohol Intake: never Substance use type: does not use Do you feel safe at home: Yes Do you feel safe in your relationship?: Yes Exam Narrative Exam Narrative: I reviewed this afternoon's KUB on the PAC system. I do not see any large stone burden overlying the expected site of the kidneys or bladder. On the morning of 01/23/2021, he is sleepy but easily arousable He does not appear septic or toxic His abdomen is somewhat tender on the left side but there is no guarding or rebound tenderness The scrotum is edematous, but there is no erythema or fluctuance There is no tenderness overlying the artificial sphincter pump or cough on palpa tion His labs and renal ultrasound are still pending Results Last Vital Signs Temp 37.4 C 01/22/21 15:49 Pulse 98 H 01/22/21 15:49 Resp 16 01/22/21 15:49 BP 154/99 H 01/22/21 15:49 Pulse Ox 96 01/22/21 15:49 Labs Result diagrams: 01/23/21 06:29 01/23/21 06:29 Labs: Laboratory Results - last 24 hr 01/22/21 01/22/21 01/22/21 10:55 10:55 10:55 WBC 15.67 H RBC 3.64 L Hgb 12.4 L Hct 37.3 L MCV 102.5 H MCH 34.1 H MCHC 33.2 RDW 12.7 Plt Count 270 MPV 10.2 Immature Gran % 1.0 Neutrophils % 88.3 Lymphocytes % 4.0 Monocytes % 6.6 Eosinophils % 0.0 Basophils % 0.1 Nucleated RBC % 0 Absolute Neutrophils 13.84 H Absolute Lymphocytes 0.63 L Absolute Monocytes 1.03 H Absolute Eosinophils 0.00 Absolute Basophils 0.02 Sodium 142 Potassium 4.2 D Chloride 105 Carbon Dioxide 29.1 Anion Gap 7.9 BUN 28 H Creatinine 1.8 H D Estimated GFR/1.73 m2 37.27 Glucose 142 H D Calcium 8.8 Magnesium 1.8
[2021-01-22] MEDS: Zolpidem 6.25 MG TABCR PO (22:02)
[2021-01-23] VITALS (20 sets, daily range): BP systolic 105–139; BP diastolic 70–89; PULSE 82–100; RESP 12–22; TEMP 36.3–37.4; O2SAT 92–98
--- NOTE | 2021-01-23 | DI.US_ITS ---
Exam(s) US RENAL EXAM: US RENAL CLINICAL HISTORY: VENKATESH and recurrent UTI TECHNIQUE: Ultrasound performed using standard protocol. COMPARISON: CT CT CHEST PE CTA from 01/19/2021 FINDINGS: Renal ultrasound was performed according to the usual protocol. There appears to be mild bilateral h ydronephrosis. No renal mass or nephrolithiasis identified. Incidental 24 millimeter right mid canelo l midpole cortical cyst noted. The patient was unable to void. Urinary bladder is grossly unremarkable and the volume of the bladde r is estimated 279 cc. Ureteral jets were not visualized. IMPRESSION: Findings suggesting mild bilateral hydronephrosis. Additional evaluation with CT urogram suggested t o evaluate etiology of suspected urinary tract obstruction. DATA REPOSITORY:
--- NOTE | 2021-01-23 | DI.MRI_ITS ---
Exam(s) MR THORACIC SPINE WO EXAM: MR THORACIC SPINE WO CLINICAL HISTORY: multiple lucencies seen on CT chest. TECHNIQUE: Multiplanar multisequence MRI was performed. COMPARISON: CT CT CHEST PE CTA from 01/19/[address] CHEST PE CTA from 01/19/2021 FINDINGS: MR examination of the thoracic spine was performed according to the usual protocol. Recent CT examin ation showed multiple low-attenuation lesions thoracic vertebral bodies, including T1, T5, T9, and T1 2. These all appear to correspond to areas of high signal T2 and T1 weighted imaging consistent with small vertebral hemangiomas or fatty rests period there is no suspicious low signal lesion identifie d on MR. Spinal canal appears intact throughout. Normal appearance of the spinal cord. No significa nt neural foraminal narrowing identified as visualized. No compression fracture seen. Post contrast imaging was not performed due to the patient's impaired renal function. IMPRESSION: Negative thoracic spine MRI. The low-attenuation lesions identified on CT appear to correspond to sm all benign vertebral hemangiomas or fatty rests. DATA REPOSITORY:
[2021-01-23 07:07] LABS: Abs Immature Grans 0.09 10^3/uL (0.0-0.06); Absolute Lymphocyte Count 0.98 10^3/uL (1.2-3.4); Absolute Neutrophil Count 12.76 10^3/uL (1.2-6.7); Basophils % 0.1; HCT 35.8 % (40.0-50.0); HGB 11.8 g/dL (13.5-17.5); Immature Grans % 0.6; Lymphocytes % 6.6; MCH 33.6 pg (27.0-33.0); MPV 10.1 fL (8.0-11.0); Monocytes % 6.9; Neutrophils % 85.8; Nucleated RBC 0 %; Platelet Count 302 10^3/uL (130-400); RBC 3.51 10^6/uL (4.36-5.78); RDW-SD 49.1 fL; WBC 14.87 10^3/uL (4.4-10.8)
[2021-01-23 07:08] LABS: Absolute Basophil Count 0.01 10^3/uL (0.0-0.2); Absolute Monocyte Count 1.03 10^3/uL (0.1-0.8)
[2021-01-23 07:21] LABS: BUN 41 mg/dL (7-18); CREATININE 3.3 mg/dL (0.70-1.30); Calcium 8.2 mg/dL (8.5-10.1); Chloride 107 mmol/L (98-107); Estimated GFR 18.52 (mL/min/1.73m2); Glucose 67 mg/dL (74-106); Potassium 4.5 mmol/L (3.5-5.1); Sodium 144 mmol/L (136-145)
[2021-01-23] MEDS: Lactated Ringers 1,000 ML 125 ML IV ×3 (07:26→22:22)
[2021-01-23] MEDS: Normal Saline Flush 10 ML SYR IVP ×3 (07:27→22:10)
[2021-01-23] MEDS: Omeprazole 20 MG CAPCR 40 MG PO (07:46)
[2021-01-23] MEDS: Milk of Magnesia 30 ML CUP PO (08:56)
[2021-01-23] MEDS: Lactated Ringers 500 ML IV (08:59)
[2021-01-23] MEDS: Pregabalin 50 MG CAP 150 MG PO ×2 (09:57→22:06)
[2021-01-23] MEDS: Mirabegron 50 MG TABCR PO (09:57)
[2021-01-23] MEDS: Aspirin E.C. 81 MG TABEC PO (09:57)
[2021-01-23] MEDS: Cetirizine 10 MG TAB PO (09:58)
[2021-01-23] MEDS: Lactobacillus Acidophilus CAP 1 CAP PO (09:58)
[2021-01-23] MEDS: Metoprolol 25 MG TAB 75 MG PO ×2 (09:58→22:06)
[2021-01-23] MEDS: Polyethylene Glycol 3350 17 GM PACKET PO (09:59)
[2021-01-23] MEDS: Diclofenac 1% Gel 100 GM TUBE TP ×2 (09:59→22:08)
[2021-01-23] MEDS: Enoxaparin 40 MG/0.4 ML SYR SC (09:59)
[2021-01-23] MEDS: Clotrimazole 1% 15 GM TUBE TP ×3 (10:00→22:07)
[2021-01-23] MEDS: Nystatin POWDER 60 GM JAR TP ×3 (10:03→22:07)
[2021-01-23] MEDS: LORazepam 2 MG/ML VIAL 0.5 MG IVP (11:53)
--- NOTE | 2021-01-23 13:52 | PGE_ITS ---
Documented by User: Leola Snowden NP 01/23/21 16:39 Date of Service Date of service: 01/23/21 Time of Service: 13:52 Assessment and Plan Assessment and plan (1) UTI (urinary tract infection): Status: Acute Assessment and plan: rocephin day 2, cultures growing proteus which is sensitive. consult w/ urology. CT scan pending for tomorrow. Qualifiers: Hematuria presence: with hematuria Urinary tract infection type: site unspecified Qualified Code(s): N39.0 - Urinary tract infection, site not specified; R31.9 - Hematuria, unspecified (2) Acute kidney injury (nontraumatic): Status: Resolved Assessment and plan: Secondary to UTI, dehydration, obstructive uropathy. urinary sphincter released by dr byrd so will have increased urinary incontinence. DO NOT place an indwelling philippe catheter. continue iv fluids bmp in am avoid nephrotoxic drugs, renal dosing (3) Altered mental status, unspecified: Status: Resolved Assessment and plan: Mental status seems to improve with IV fluids. Continue antibiotics and IV fluids. Qualifiers: Altered mental status type: transient alteration of awareness Qualified Code(s): R40.4 - Transient alteration of awareness (4) Dehydration: Status: Resolved Assessment and plan: IV fluids as above (5) DVT prophylaxis: Status: Acute Assessment and plan: Renal adjusted dosing of Lovenox (6) Abdominal pain: Status: Acute Assessment and plan: unclear that this is urologic cause for his pain. improved. Qualifiers: Abdominal location: lower abdomen, unspecified Qualified Code(s): R10.30 - Lower abdominal pain, unspecified Subjective Subjective Patient reports: no new complaints and afebrile Interval history since last seen: patient with increased lethargy but no conf usion. no focal deficits. tolerated MRI Exam Narrative Exam Narrative: Patient is sleepy but responsive and answers appropriately; he is hard of hearing and his answers most of the questions for him Lungs: clear Heart: RRR Abdomen: soft, +bowel sounds, mild tenderness over suprapubic and RLQ w/out gurading or rebound tenderness. Objective Last Vital Signs Temp 37.4 C 01/23/21 13:18 Pulse 87 01/23/21 13:18 Resp 12 01/23/21 13:23 BP 111/73 01/23/21 13:18 Pulse Ox 96 01/23/21 13:23 Laboratory Results - last 24 hr 01/23/21 01/23/21 06:29 06:29 WBC 14.87 H RBC 3.51 L Hgb 11.8 L Hct 35.8 L MCV 102.0 H MCH 33.6 H MCHC 33.0 RDW 13.0 Plt Count 302 MPV 10.1 Immature Gran % 0.6 Neutrophils % 85.8 Lymphocytes % 6.6 Monocytes % 6.9 Eosinophils % 0.0 Basophils % 0.1 Nucleated RBC % 0 Absolute Neutrophils 12.76 H Absolute Lymphocytes 0.98 L Absolute Monocytes 1.03 H Absolute Eosinophils 0.00 Absolute Basophils 0.01 Sodium 144 Potassium 4.5 Chloride 107 Carbon Dioxide 28.0 Anion Gap 9.0 BUN 41 H D Creatinine 3.3 H D Estimated GFR/1.73 m2 18.52 Glucose 67 L D Calcium 8.2 L Documented by User: Gerald Gaston MD 01/24/21 16:38
--- NOTE | 2021-01-23 14:28 | CHAPLAIN ---
Joon was sleeping when I visited. His (?) Pita was with him. She said she is hoping that he will wake up soon, and that he's been sleeping for two days. I explained my role and offered support. I will continue to visit.
--- NOTE | 2021-01-23 15:50 | PGE_ITS ---
Date of Service Date of service: 01/23/21 Time of Service: 16:32 Assessment and Plan Assessment and plan (1) UTI (urinary tract infection): Status: Acute Qualifiers: Hematuria presence: with hematuria Urinary tract infection type: site unspecified Qualified Code(s): N39.0 - Urinary tract infection, site not specified; R31.9 - Hematuria, unspecified (2) Bilateral hydronephrosis: Status: Acute Assessment and plan: I spoke with Dr Ballard today regarding this patient. The patient had a CT of the abdomen and pelvis done at [facility] [place]. No kidney or bladder stones were identified (the patient's was mistaken). There was no hydronephrosis at that time. There were no concerns for the presence of a prostate abscess. Dr Ballard is also at a loss as to why this gentleman has persistent or recurrent bacteruria. The patient had a urodynamic study prior to placement of his artificial urinary sphincter. His bladder compliance was normal at that time (May 2019) With his new onset of bilateral hydronephrosis, I have deactivated his artificial sphincter. Perhaps with the patient's mental status changes, he has not been able to manipulate the sphincter device leading to backup of urine and hydronephrosis. The patient will now be incontinent continually, but his creatinine and hydronephrosis should improve. I think a CT of the abdomen and pelvis would be quite reasonable even though he had a study at [facility] in November. With his renal function, we would certainly need a noncontrast study. Subjective Subjective Interval history since last seen: He is somewhat sedated after his recent MRI Exam Narrative Exam Narrative: He was seen on the stretcher. He was able to answer questions for me. I deactivated his artificial urinary sphincter and he became incontinent of uri ne He is awake and alert. Objective Last Vital Signs Temp 36.3 C L 01/23/21 15:06 Pulse 82 01/23/21 15:34 Resp 19 01/23/21 15:34 BP 105/70 01/23/21 15:34 Pulse Ox 96 01/23/21 15:34 Laboratory Results - last 24 hr 01/23/21 01/23/21 06:29 06:29 WBC 14.87 H RBC 3.51 L Hgb 11.8 L Hct 35.8 L MCV 102.0 H MCH 33.6 H MCHC 33.0 RDW 13.0 Plt Count 302 MPV 10.1 Immature Gran % 0.6 Neutrophils % 85.8 Lymphocytes % 6.6 Monocytes % 6.9 Eosinophils % 0.0 Basophils % 0.1 Nucleated RBC % 0 Absolute Neutrophils 12.76 H Absolute Lymphocytes 0.98 L Absolute Monocytes 1.03 H Absolute Eosinophils 0.00 Absolute Basophils 0.01 Sodium 144 Potassium 4.5 Chloride 107 Carbon Dioxide 28.0 Anion Gap 9.0 BUN 41 H D Creatinine 3.3 H D Estimated GFR/1.73 m2 18.52 Glucose 67 L D Calcium 8.2 L
[2021-01-23] MEDS: cefTRIAXone 2 GM/50 ML BAG IVPB (16:05)
--- NOTE | 2021-01-23 16:30 | PDOC.CMPRO ---
- If Service Date Differs Date of service: 01/23/21 Time of Service: 16:30 Care Management Progress Note S/O: Joon was sitting up in his chair when CM met with him. He reported that he is still not feeling well. He had a renal ultrasound and a thoracic spine MRI, as well as a Urology consultation today. Per Urology, his artificial sphincter was deactivated, making him incontinent, in order to improve his creatinine and hydronephrosis. A CT of the abdomen and pelvis were recommended. CM will continue to follow. A: Joon is a 70 year old male admitted to [facility] on 01/19/21 for Urosepsis. P: Anticipate Joon will return home when medically cleared. His will drive him home via private vehicle. He will follow up with his PCP and discharge plan of care. CM will continue to follow.
[2021-01-23] MEDS: Albuterol 2.5 MG/3 ML INH SOLN VIAL UPD ×2 (18:33→22:21)
[2021-01-23] MEDS: Zolpidem 6.25 MG TABCR PO (22:06)
[2021-01-24] VITALS (101 sets, daily range): BP systolic 80–146; BP diastolic 50–92; PULSE 74–99; RESP 0–32; TEMP 36–36.7; O2SAT 50–100
[2021-01-24 06:24] LABS: Abs Immature Grans 0.31 10^3/uL (0.0-0.06); Absolute Basophil Count 0.08 10^3/uL (0.0-0.2); Absolute Lymphocyte Count 1.16 10^3/uL (1.2-3.4); Absolute Monocyte Count 1.03 10^3/uL (0.1-0.8); Basophils % 0.4; HGB 12.2 g/dL (13.5-17.5); Immature Grans % 1.5; Lymphocytes % 5.5; MCH 33.4 pg (27.0-33.0); MCHC 31.3 % (32.0-36.0); MCV 106.8 fL (80-95); Monocytes % 4.9; Neutrophils % 87.7; Nucleated RBC 0 %; Platelet Count 427 10^3/uL (130-400); RBC 3.65 10^6/uL (4.36-5.78); RDW 13.2 % (11.8-14.1); RDW-SD 52.4 fL; WBC 21.02 10^3/uL (4.4-10.8)
[2021-01-24 06:31] LABS: Absolute Neutrophil Count 18.43 10^3/uL (1.2-6.7)
[2021-01-24 06:54] LABS: Anion Gap 10.5 mmol/L (3-11); BUN 59 mg/dL (7-18); CO2 24.5 mmol/L (21.0-32.0); Calcium 7.9 mg/dL (8.5-10.1); Chloride 104 mmol/L (98-107); Estimated GFR 11.46 (mL/min/1.73m2); Glucose 334 mg/dL (74-106); Sodium 139 mmol/L (136-145)
[2021-01-24 06:57] LABS: Diff Comment RBC Morph Reviewed; Macrocytosis 2+; Polychromasia Present
[2021-01-24 07:00] LABS: Potassium 6.9 mmol/L (3.5-5.1)
--- NOTE | 2021-01-24 07:15 | DI.RAD_ITS ---
Exam(s) XR PORTABLE CHEST AP EXAM: XR PORTABLE CHEST AP CLINICAL HISTORY: unresponsive, low spo2. TECHNIQUE: 2D digital imaging was performed. COMPARISON: CR,XR XR ABD FLAT UPRIGHT PA CHEST from 01/22/2021 FINDINGS: Two AP portable views are submitted for interpretation. Chest leads in place. Patient is intubated. Distal tip of the endotracheal tube is in satisfactory position above octavia. There are no confluent infiltrates nor pleural effusions. No pulmonary edema. No pneumothorax. IMPRESSION: No acute pulmonary findings on this single AP portable view of the chest. Patient is intubated. ETT appears to be in satisfactory position. DATA REPOSITORY: RADIATION DOSE DELIVERED: All CT scans at this facility use at least one of these dose optimization techniques: automated exposure control; mA and/or kV adjustment per patient size (includes targeted e xams where dose is matched to clinical indication); or iterative reconstruction.
--- NOTE | 2021-01-24 07:30 | RT.EKG_ITS ---
APPROVED REPORT Exam: Resting ECG Reason for Exam: unresponsive Patient Location: I HR:95 bpm ECG Measurements Heart Rate 95 AXIS IA 223 P 23 QRSd 87 QRS 35 QT 373 T 16 QTc 469 Conclusion Sinus rhythm...normal P axis, V-rate 60- 99 Prolonged IA interval...IA >215, V-rate 91-120
[2021-01-24 07:44] LABS: BE -6 mmol/L (-2-3); HCO3 23 mmol/L (22-26); pO2 80 mmHg (80-105); sO2 93 % (95-98); tCO2 22 mmol/L (23-27)
[2021-01-24 07:48] LABS: pH 7.15 (7.35-7.45)
[2021-01-24 07:49] LABS: Lactate 0.8 mmol/L (0.6-1.4)
[2021-01-24 07:49] LABS: pCO2 64 mmHg (35-45)
[2021-01-24] MEDS: Insulin REGULAR-Human 100 UNITS/ML UNIT (07:49)
--- NOTE | 2021-01-24 07:53 | W.ANESAIR ---
Airway Management Note Procedure Date and Time DO NOT use this note for patients in the OR, Use Intraop Record Instead Date Performed: 01/24/21 Procedure Time: 07:30 Procedure Location Procedure Location: Intensive Care Unit Requesting Provider: Gerald Gaston Number of Previous Intubation attempts by other providers: 0 Procedure Type Procedure Type: Emergency Pre-Induction Setup Sterility: Hand Hygiene, Surgical Cap, Surgical Mask and Eye Protection Preinduction Setup: Standard monitors applied, BVM at bedside, Suction ready and Airway equipment ready Induction Induction Time: 07:30 Induction setup: Head of Bed Elevated and Bag Valve Mask Ventilation (via iGel) Induction Medications (Indicate Dose Given): Other Medication/Route/Dose:: none Mask Ventilation: None Airway Device Airway Type: Intubation Laryngoscopy: Atraumatic Laryngoscopy and Edentulous Airway Grade: 1 Airway Blades: Glidescope 3 Endotracheal Tube: Oral, Cuffed, Stylet Used and 8.0mm ETT Depth Where Secured (cm): 22 Placement Confirmation: Cuff inflated with minimally occlusive pressure, Secured with tape and ETCO2 waveform present Number of Attempts (See previous attempts in note section): 1 Post Induction Management Post Induction Medications (Indicate Dose Given): Managed by Requesting Provider Gastric Tube Gastric Tube: Placed by Other Person Procedure Complications Procedure Complications: None Procedure Outcome Procedure Outcome: Successful Procedure Comment: arrived to ICU, iGel in place with easy ventilation (?assisting pt), pt not responsive, glide 3, grade 1, tube easily passed, secured with tape. Proceduralist Performed By: Jamil Segovia
[2021-01-24] MEDS: PROPOFOL 1,000 MG/100 ML BTL 3.468 MG IVPB (08:00)
[2021-01-24 08:02] LABS: Anion Gap 13.4 mmol/L (3-11); BUN 24 mg/dL (7-18); CO2 10.6 mmol/L (21.0-32.0); CREATININE 1.4 mg/dL (0.70-1.30); Chloride 128 mmol/L (98-107); Estimated GFR 49.82 (mL/min/1.73m2); Glucose 178 mg/dL (74-106); Sodium 152 mmol/L (136-145)
[2021-01-24 08:06] LABS: Potassium 2.1 mmol/L (3.5-5.1)
[2021-01-24 08:07] LABS: Calcium < 5.0 mg/dL (8.5-10.1)
[2021-01-24] MEDS: Normal Saline Flush 10 ML SYR ×2 (08:41→09:18)
[2021-01-24 08:43] LABS: Anion Gap 9.1 mmol/L (3-11); BUN 60 mg/dL (7-18); CO2 25.9 mmol/L (21.0-32.0); Calcium 7.8 mg/dL (8.5-10.1); Chloride 103 mmol/L (98-107); Estimated GFR 11.21 (mL/min/1.73m2); Glucose 398 mg/dL (74-106); Sodium 138 mmol/L (136-145)
[2021-01-24 08:48] LABS: CREATININE 5.1 mg/dL (0.70-1.30)
[2021-01-24 08:49] LABS: Potassium 6.6 mmol/L (3.5-5.1)
[2021-01-24] MEDS: Normal Saline 1,000 ML 150 ML IV (09:05)
--- NOTE | 2021-01-24 09:17 | PDOC.CMPRO ---
- If Service Date Differs Date of service: 01/24/21 Time of Service: 09:17 Care Management Progress Note S/O: Joon was emergently transferred to the ICU this morning, and was subsequently intubated. His was in the room with him. She reported that two of her daughters have been able to visit, and one will visit later today. He is going to have CT's today to attempt to determine what has caused his decline. CM provided support to his , who is concerned about him. The New Media Strategist, Solange, has been checking in regularly and providing support. CM will continue to follow. A: Joon is a 70 year old male admitted to [facility] on 01/19/21 for Urosepsis. P: Anticipate Joon will return home when medically cleared. His will drive him home via private vehicle. He will follow up with his PCP and discharge plan of care. CM will continue to follow.
[2021-01-24] MEDS: Pantoprazole 40 MG VIAL IVP (09:23)
[2021-01-24] MEDS: Normal Saline Flush 10 ML SYR IVP ×2 (09:23→15:25)
[2021-01-24] MEDS: Enoxaparin 40 MG/0.4 ML SYR SC (09:24)
[2021-01-24] MEDS: Diclofenac 1% Gel 100 GM TUBE TP (09:28)
[2021-01-24] MEDS: Clotrimazole 1% 15 GM TUBE TP ×2 (09:28→15:47)
[2021-01-24] MEDS: Insulin REGULAR-Human 100 UNITS/ML UNIT 10 UNITS SC (09:32)
[2021-01-24 09:47] LABS: BE -4 mmol/L (-2-3); HCO3 22 mmol/L (22-26); pCO2 44 mmHg (35-45); pH 7.31 (7.35-7.45); pO2 52 mmHg (80-105); sO2 86 % (95-98); tCO2 21 mmol/L (23-27)
[2021-01-24 09:49] LABS: FIO2 40 %; Site Left Radial
[2021-01-24] MEDS: Albuterol 2.5 MG/3 ML INH SOLN VIAL (10:48)
--- NOTE | 2021-01-24 11:10 | DI.CT_ITS ---
Exam(s) CT HEAD WO EXAM: CT HEAD WO CLINICAL HISTORY: unresponsive. TECHNIQUE: Imaging Protocol: Axial computed tomography images with coronal and sagittal reformatted images were created and reviewed COMPARISON: No exams were available for comparison FINDINGS: There are no skull fractures nor fluid in the visualized paranasal sinuses. There is no evidence of intracranial hemorrhage, mass effect, or shift of midline structures. There are no extra-axial fluid collections. The ventricles are not enlarged or shifted and there is no blo od within the ventricular system nor within the basal cisterns. The basilar artery is noted to be dolichoectatic but not heavily calcified. IMPRESSION: No acute intracranial findings on this noninfused CT scan of the brain. RADIATION DOSE DELIVERED: 826.43mGy.cm Total DLP DATA REPOSITORY: All CT scans at this facility are submitted to the National Radiology Data Registry (NRDR) Dose Index Registry (DIR) with the [employer] (ACR). RADIATION OPTIMIZATION: All CT scans at this facility use at least one of these dose optimization te chniques: automated exposure control; mA and/or kV adjustment per patient size (includes targeted exa ms where dose is matched to clinical indication); or iterative reconstruction.
--- NOTE | 2021-01-24 11:20 | DI.CT_ITS ---
Exam(s) CT CHEST/ABD/PEL WO EXAM: CT CHEST/ABD/PEL WO CLINICAL HISTORY: sepsis, concerns for nidus of recurrent infection. TECHNIQUE: Imaging Protocol: Axial computed tomography images with coronal and sagittal reformatted images were created and reviewed CONTRAST MATERIAL: Intravenous: None (significantly elevated creatinine and decreased GFR) Oral: None COMPARISON: CT CT CHEST PE CTA from 01/19/2021 FINDINGS: CHEST: ET TUBE: Distal tip of the endotracheal tube is in satisfactory position above the octavia. There is some mucus in the proximal right mainstem bronchus noted. The left mainstem bronchus is clear. NG TUBE: NG tubes in good position in the stomach, not coiled, and lying along the greater curvature with its distal tip at the antrum level. LUNGS: There is infiltrate including air bronchograms in the right lower lobe, not previously present . Small bilateral pleural effusions.. MEDIASTINUM: No obvious hilar nor mediastinal adenopathy. CARDIAC: There is cardiomegaly. There is no pericardial effusion. Caliber thoracic aorta is within normal limits.Mild LAD coronary artery calcification. OSSEOUS: No rib fractures nor compression fractures. No sternal fractures. No obvious significant o sseous lesions... ABDOMEN: There is a small amount of subhepatic ascites.. This extends down the right pericolic gutter. There is no free fluid layering in the dependent aspect of the pelvis. LIVER: There are no obvious focal hepatic lesions evident of this noninfused study. GALLBLADDER/BILIARY: No obvious gallbladder pathology. CBD is not dilated. PANCREAS: No evidence of obvious pancreatic mass nor dilatation of the pancreatic duct. SPLEEN: Spleen is not enlarged. No obvious intrasplenic lesions. ADRENALS: There are no significant adrenal masses. KIDNEYS: There is a small exophytic cyst off the upper right kidney and a larger exophytic cyst off t he posterior cortex of the right kidney lower down, this larger cyst measuring 2.8 by 2.7 cm. No cys t or solid lesions in the opposite-left kidney. There is prominence of the upper collecting systems bilaterally with some mild perinephric streaking bilaterally. Also slight prominence of both ureters throughout their length down to and including the ureterovesical junctions but with no evidence of r adiopaque calculi nor masses at the ureterovesical junctions. No radiopaque calculi nor obvious mass in the urinary bladder. Mild perivesicular streaking noted.. ABDOMINAL AORTA: Abdominal aorta is not enlarged. LYMPH NODES: There is no retroperitoneal nor para-aortic adenopathy. ABDOMINAL WALL/GI: No evidence of signature anterior abdominal wall hernia. No bowel obstruction. There is a round 3.6 cm diameter balloon device between the bladder and the right internal inguinal r ing from which a catheter descends into the penis where there is a 1.8 cm length intra urethral devic e, probably for intermittent micturition use at a place of stricture. There is some dilatation of th e urethra above this level . The prostatic urethra is wide, exhibiting 1.4 cm diameter most probably postsurgical. Prostate is not enlarged. There is no obturator adenopathy. PELVIS: LYMPH NODES: There is no intrapelvic nor inguinal adenopathy. GI: Appendix is difficult to locate. It may be surgically absent, this despite absence of clips in t his region..There are few uncomplicated diverticuli. No evidence of acute diverticulitis in the sigm oid. URINARY BLADDER: No calculi nor obvious masses evident REPRODUCTIVE: As above. OSSEOUS: No significant osseous lesions. IMPRESSION: 1. Compared to 01/19/2021 there is now significant infiltrate in the right lower lobe small right ple ural effusion. There is mucous in the right mainstem bronchus; left mainstem bronchus is clear. Sma ll pleural effusion on the left side noted. 2. Endotracheal tube and NG tube are in good position, as described above. 3. Cardiomegaly. No pericardial effusion. Mild coronary artery calcification. 4. There is some perinephric streaking is noted as well as bilateral mild hydronephrosis and hydrour eter, without evidence of obstructing calculus nor obvious obstructing mass at the ureterovesical demarcus ctions nor within the nondistended urinary bladder. 5. widened prostatic and upper penile urethra. At the mid urethral level there is an inflatable uret hral device which is service by a 3.6 diameter balloon in the right-side of the pelvis. There is pedro luis e streaking around this device catheter but no drainable fluid collection. 6. There is a small amount of subhepatic fluid as well as fluid in the right paracolic gutter. No o bvious focal findings in the liver and no obvious appendicitis. 7. No evidence of acute diverticulitis. RADIATION DOSE DELIVERED: 1,989.12mGy.cm Total DLP DATA REPOSITORY: All CT scans at this facility are submitted to the National Radiology Data Registry (NRDR) Dose Index Registry (DIR) with the [employer] (ACR). RADIATION OPTIMIZATION: All CT scans at this facility use at least one of these dose optimization te chniques: automated exposure control; mA and/or kV adjustment per patient size (includes targeted exa ms where dose is matched to clinical indication); or iterative reconstruction.
[2021-01-24 12:40] LABS: Anion Gap 10.1 mmol/L (3-11); BUN 62 mg/dL (7-18); CO2 24.9 mmol/L (21.0-32.0); Calcium 7.4 mg/dL (8.5-10.1); Chloride 104 mmol/L (98-107); Estimated GFR 11.21 (mL/min/1.73m2); Glucose 333 mg/dL (74-106); Sodium 139 mmol/L (136-145)
[2021-01-24 12:45] LABS: Potassium 6.1 mmol/L (3.5-5.1)
[2021-01-24 12:46] LABS: CREATININE 5.1 mg/dL (0.70-1.30)
--- NOTE | 2021-01-24 13:02 | PUCC_ITS ---
General Date of Service Date of service: 01/24/21 Time of Service: 07:30 Reason for Admission to ICU: Respiratory Arrest Assessment and Plan Assessment and plan (1) Bilateral hydronephrosis: Status: Acute (2) Sepsis: Status: Acute Qualifiers: Acute renal failure type: with acute tubular necrosis Sepsis acute organ dysfunction status: with acute organ dysfunction Sepsis type: sepsis due to unspecified organism Severe sepsis acute organ dysfunction type: acute renal failure Severe sepsis shock status: without septic shock Qualified Code(s): A41.9 - Sepsis, unspecified organism; R65.20 - Severe sepsis without septic shock; N17.0 - Acute kidney failure with tubular necrosis (3) UTI (urinary tract infection): Status: Acute Qualifiers: Hematuria presence: with hematuria Urinary tract infection type: site unspecified Qualified Code(s): N39.0 - Urinary tract infection, site not specified; R31.9 - Hematuria, unspecified (4) Altered mental status, unspecified: Status: Resolved Qualifiers: Altered mental status type: transient alteration of awareness Qualified Code(s): R40.4 - Transient alteration of awareness (5) Acute renal failure: Status: Acute Qualifiers: Acute renal failure type: unspecified Qualified Code(s): N17.9 - Acute kidney failure, unspecified (6) Pneumonia: Status: Acute Qualifiers: Pneumonia type: due to unspecified organism Laterality: right Lung location: lower lobe of lung Qualified Code(s): J18.9 - Pneumonia, unspecified organism (7) Pyelonephritis: Status: Acute (8) Hypoventilation: Status: Acute (9) Respiratory arrest: Status: Acute (10) Urethral obstruction: Status: Acute (11) Hyperkalemia: Status: Acute Assessment and plan: This is a 70 yo male with a complex urologic history including recurrent Proteus UTI's and an artificial urinary sphincter who presented with UTI and AMS. He had a respiratory arrest 01/24/21 that resulting in an ICU transfer and intubation. He is in acute renal failure with a K >6 without improvement despite temporizing measures and fluid rescusitation and attempted diuresis. His sphincter was opened by Dr. Mccann, however his CT shows prescence of fluid in the bladder that is concerning for obstruction elsewhere in his urethral tract. He now has pyelonephritis as well as pneumonia and likely aspiration given mental status. He needs transfer to a tertiary care center with urological services and the ability to do urgent dialysis if needed. Recommendations Pulmonary: Respiratory arrest - intubated on 40% FiO2 and PEEP 10 Hypercapnic and hypoxic respiratory failure - ABG consistent with hypoxemia and acute respiratory acidosis - repeat ABG after mechanical ventilation resolved abnormalities Asthma - on Nucala, singulair, and nebs at home - recommend Duonebs q6 standing Cardiac: No acute concerns: vitals signs stable Renal: Acute Renal Failure Likely obstructive etiology given clinical picture - insignificant urine output despite fluid resuscitation - need urological services for Portillo placement given complex history and hardware prescence - may need HD if unable to be resolved in a timely manner - understands this and seems as though this is in line with the patient wishes if it came to that - 12F Portillo placed non-traumatically by recommendation of [facility] Urology. Hyperkalemia - insulin and dextrose did not decrease K - Lasix given - no EKG changes Hydronephrosis - due to urethral obstruction as described Hematuria - thought to be due to UTI/pyelo/obstruction I&O: Intake & Output 01/21/21 01/22/21 01/23/21 01/24/21 23:59 23:59 23:59 23:59 Intake Total 2710 / 2710 1130 / 1130 3525.833 / 3525.833 971.293 / 971.293 Output Total 0 / 0 0 / 0 Balance 2710 / 2710 1130 / 1130 3525.833 / 3525.833 971.293 / 971.293 Weight 115.7 kg 114.7 kg 115.6 kg Daily Fluid Goal:: Negative GI Nutrition: NPO Date of Last Bowel Movement: 01/22/21 Infectious Disease: Pyelonephritis - Proteus is pansensitive (except to Macrobid) - on Zosyn - needs source control (relief of urinary obstruction) - blood cultures obtained RLL Pneumonia This is in the setting of being obtunded for days, so this could be an aspiration pneumonia - on Zosyn already - recommend adding azithromycin - recommend urine antigens for legionella and s.pneumo - recommend sputum culture if able - blood cultures obtained Hematologic: Leukocytosis In the setting of infection Neurologic: AMS/Delerium - baseline dementia per , but able to do activities of daily living - head CT neg - likely in the setting of uremia and sepsis Endocrine: no acute concerns Lines: PIV ETT 12F Portillo OGT Prophylaxis: Lovenox changed to heparin Code Status: Resuscitation Status Full Code Subjective Critical and life-threatening events over the past 24 hours: This is a 70-year-old gentleman who was admitted to the medical surgical service for acute organ failure, altered mental status thought to be due to a UTI and hematuria on January 19, 2021. This gentleman has a very extensive urologic history and ultimately Dr. Mccann from urology was consulted for recurrent UTIs on 01/22/21. Per his note the patient had a diagnosis of adenocarcinoma of the prostate approximately 3 years ago and was treated with external beam radiation. Following this he developed urinary retention and developed a prostate abscess in 2017. There was an attempt at percutaneous drainage however ultimately the patient underwent a TURP in March 2018. 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 In May 2019 he had an artificial urinary sphincter placed at [facility]. The patient has recurrent UTIs with Proteus that is pansensitive. The patient developed bilateral hydronephrosis and so Dr. Mccann deactivated his artificial sphincter, stating that due to the patient's mental status changes he may have not been able to manipulate the sphincter device leading up to the backup of urine and the hydronephrosis. Dr. Mccann also recommended a CT of the abdomen and pelvis on January 23, 2021 given the new worsened renal function and a new bilateral hydronephrosis. Unfortunately, this morning the patient was found to be completely unresponsive and in respiratory arrest. Anesthesia found the patient This prompted a transfer to the ICU where the patient was intubated by the anesthesia department. Of note the patient never lost a pulse and did not receive any CPR. [place] labs were drawn at this time that shows a start increase in the white count from 15 -21 with a left shift. His initial ABG showed hypoxemia with acute respiratory acidosis likely due to his hypoventilation. A head/chest/abdomen/pelvis was completed. The head CT was negative. Chest CT showed a RLL pneumonia. A/P (without ocntrast) showed perinephric fat stranding, bilateral hydropnephrosis and a full bladder, despite having his urinary sphincter opened. Exam Const General: patient mechanically ventilated Nutritional Appearance: well nourished [facility] Head: normocephalic Ears: external ears normal General nose exam: nasal mucous membranes and turbinates normal Face and sinus: sinuses nontender Mouth: oropharynx normal and moist mucous membranes Eyes General: appearance normal, both eyes and all related structures Pupils: PERRL Neck Neck: normal visual inspection and no lymphadenopathy Chest Chest: normal inspection of the chest Resp Effort & Inspection: normal respiratory effort Auscultation: clear to auscultation bilaterally, no rales, no rhonchi and wheezes expiratory wheezes Cardio Rate: regular rate Rhythm: regular rhythm Heart Sounds: S1 normal, S2 normal and no murmurs Pulses: radial pulses present bilaterally GI Inspection: normal to inspection Palpation: soft Skin General skin exam: no rashes or lesions noted Extrem General: no clubbing, cyanosis or edema Most Recent VS/Results Last Vital Signs Temp 36 C L 01/24/21 11:21 Pulse 75 01/24/21 11:45 Resp 21 01/24/21 11:46 BP 127/74 01/24/21 11:45 Pulse Ox 96 01/24/21 11:46 Laboratory Results - last 24 hr 01/24/21 01/24/21 01/24/21 06:15 06:15 07:39 WBC 21.02 H D RBC 3.65 L Hgb 12.2 L Hct 39.0 L MCV 106.8 H D MCH 33.4 H MCHC 31.3 L RDW 13.2 Plt Count 427 H MPV 10.0 Immature Gran % 1.5 Neutrophils % 87.7 Lymphocytes % 5.5 Monocytes % 4.9 Eosinophils % 0.0 Basophils % 0.4 Nucleated RBC % 0 Absolute Neutrophils 18.43 H Absolute Lymphocytes 1.16 L Absolute Monocytes 1.03 H Absolute Eosinophils 0.00 Absolute Basophils 0.08 RBC Morphology See Below Polychromasia Present Macrocytosis 2+ ABG Sample Site ABG pH 7.15 L* ABG pCO2 64 H* ABG pO2 80 ABG HCO3 23 ABG Total CO2 22 L ABG O2 Saturation 93 L ABG Base Excess -6 L VBG Lactate Oxygen Liter Flow FiO2 Sodium 139 Potassium 6.9 H* D Chloride 104 Carbon Dioxide 24.5 Anion Gap 10.5 BUN 59 H D Creatinine 5.0 H* D Estimated GFR/1.73 m2 11.46 Glucose 334 H D Calcium 7.9 L 01/24/21 01/24/21 01/24/21 07:42 07:42 07:42 WBC RBC Hgb Hct MCV MCH MCHC RDW Plt Count MPV Immature Gran % Neutrophils % Lymphocytes % Monocytes % Eosinophils % Basophils % Nucleated RBC % Absolute Neutrophils Absolute Lymphocytes Absolute Monocytes Absolute Eosinophils Absolute Basophils RBC Morphology Polychromasia Macrocytosis ABG Sample Site ABG pH ABG pCO2 ABG pO2 ABG HCO3 ABG Total CO2 ABG O2 Saturation ABG Base Excess VBG Lactate 0.8 Oxygen Liter Flow FiO2 Sodium 152 H D Potassium Cancelled 2.1 L* D Chloride 128 H Carbon Dioxide 10.6 L Anion Gap 13.4 H BUN 24 H D Creatinine 1.4 H D Estimated GFR/1.73 m2 49.82 Glucose 178 H D Calcium < 5.0 L* 01/24/21 01/24/21 01/24/21 08:16 09:42 12:14 WBC RBC Hgb Hct MCV MCH MCHC RDW Plt Count MPV Immature Gran % Neutrophils % Lymphocytes % Monocytes % Eosinophils % Basophils % Nucleated RBC % Absolute Neutrophils Absolute Lymphocytes Absolute Monocytes Absolute Eosinophils Absolute Basophils RBC Morphology Polychromasia Macrocytosis ABG Sample Site Left Radial ABG pH 7.31 L ABG pCO2 44 ABG pO2 52 L ABG HCO3 22 ABG Total CO2 21 L ABG O2 Saturation 86 L ABG Base Excess -4 L VBG Lactate Oxygen Liter Flow 420/20/40+8 FiO2 40 Sodium 138 D 139 Potassium 6.6 H* D 6.1 H* Chloride 103 104 Carbon Dioxide 25.9 24.9 Anion Gap 9.1 10.1 BUN 60 H D 62 H Creatinine 5.1 H* D 5.1 H* Estimated GFR/1.73 m2 11.21 11.21 Glucose 398 H D 333 H Calcium 7.8 L 7.4 L Review of Systems All systems reviewed & are unremarkable except as noted in HPI and below, Unobtainable due to endotracheal tube and Unobtainable due to mental status
[2021-01-24 14:32] LABS: Troponin I < 0.05 ng/mL (<0.06)
--- NOTE | 2021-01-24 14:50 | CHAPLAIN ---
Joon was transferred to the ICU this morning when he was found unresponsive. He was intubated and today had scans done of his head, chest, abdomen and pelvis areas. His , Pita, was allowed up to visit, prior to visiting hours and to meet with the hospitalist. A daughter was also allowed up before visiting hours. Since regular visiting hours started at 1 p.m. the three daughters have rotated through, along with the family's medical manager. Rev. Prieto from the [employer] in [place]. I have visited on and off through out the day. Pita requested a prison keeper this morning a we offered a prayer together.
[2021-01-24] MEDS: MEROPENEM 1 GM in Normal Saline 100 ML IVPB (15:23)
[2021-01-24] MEDS: ACETAMINOPHEN 1,000 MG/100 ML BTL 400 MG IVPB (15:24)
[2021-01-24] MEDS: Normal Saline 500 ML 30 ML IV (15:24)
[2021-01-24] MEDS: Metoprolol 5 MG/5 ML VIAL IVP (15:25)
[2021-01-24] MEDS: Nystatin POWDER 60 GM JAR TP (15:47)
[2021-01-24] MEDS: Furosemide 100 MG/10 ML VIAL 120 MG IVP (15:51)
[2021-01-24 15:59] LABS: Procalcitonin 0.9 ng/mL
[2021-01-24] MEDS: PROPOFOL 1,000 MG/100 ML BTL 7 MG IVPB (16:09)
[2021-01-24] MEDS: AZITHROMYCIN 500 MG in Normal Saline 250 ML 166.66 MG IVPB (16:11)
--- NOTE | 2021-01-24 16:38 | DSE_ITS ---
Date of service: 01/24/21 Time of Service: 16:39 DS: Diagnosis Discharge Diagnosis (1) Bilateral hydronephrosis: Status: Acute (2) Sepsis: Status: Acute (3) UTI (urinary tract infection): Status: Acute (4) Altered mental status, unspecified: Status: Resolved (5) Acute renal failure: Status: Acute (6) Pneumonia: Status: Acute (7) Pyelonephritis: Status: Acute (8) Hypoventilation: Status: Acute (9) Respiratory arrest: Status: Acute (10) Urethral obstruction: Status: Acute (11) Hyperkalemia: Status: Acute Discharge Plan Disposition Patient Disposition: [facility] Condition: Critical Discharge Details Reason For Visit: Urosepsis Admit Date/Time: 01/19/21 22:42 Admit Provider: Enrique Brown Attending Provider: Enrique Brown Primary Care Provider: Jax Higginbotham Hospital Course Hospital Course: Admission HPI: 70-year-old male with a history of insulin-dependent diabetes mellitus and COPD and hypertension, SVT and CHF who presented to the emergency department with complaints of substernal chest discomfort mild dyspnea and confusion. Chest discomfort lasted for about 45 minutes but had resolved by the time he presented to the emergency department. Patient has no fever or rigors. However work-up in the emergency department included space a CTA of the chest with contrast as well as routine labs and EKG. CT of the chest was a limited study due to breathing motion artifact but there was no evidence of pulmonary embolism. Lungs were unremarkable no consolidation no masses. Aorta was unremarkable without aneurysm. Heart showed no cardiomegaly no pericardial effusion. Labs were remarkable for a leukocytosis of 12,800 no anemia but with macrocytic changes to his red cells with MCV of 103. Platelet count was normal at 279,000. CMP was remarkable for elevated sodium of 146 and a carbon dioxide level of 33 with an elevated BUN and creatinine of 33 and 1.4. Glucose was 136 and magnesium level was 1.7. LFTs were normal. Troponin I level x2 sets were negative at less than 0.05. Procalcitonin was mildly elevated at 0.1 and blood lactate was elevated 2.2. Urinalysis was cloudy and positive for nitrites small amount of blood trace of ketones small amount of leukocyte esterase with greater than 50 white cells and many bacteria. Blood and urine cultures were obtained. Patient was started on normal saline at 150 mL an hour. Fluid bolus was not given because of his history of CHF although he showed no evidence of acute CHF at present. Patient was given ceftriaxone 1 g IV. Patient had presented with sinus tachycardia and has remained in sinus tachycardia with heart rates varying between 103 and 112 bpm he has not had any hypotension. His presenting blood pressure is 136/99 and is currently at 160/83. His oxygen saturations 100% on room air. He reportedly had some wheezing while he was in the emergency department was given an albuterol updraft. Patient is being admitted for treatment of urosepsis. He has had a history of frequent urinary tract infections and review of his previous urine cultures have shown repeated growth of Proteus mirabilis. He had a urine culture from December 26 as well as November 21 and October 27, 2020. All these have grown Proteus mirabilis which has been pansensitive except for resistance to nitrofurantoin. Patient will be admitted and treated with IV fluids to treat his dehydration as well as being given high- dose Rocephin. He will receive another gram of Rocephin tonight and then be placed on 2 g every 24 hours pending his culture results. If he has no bacteremia he could potentially be discharged home on oral antibiotics in the next 24 hours. Patient should have some imaging of his kidneys to rule out nephrolithiasis or obstructive uropathy. He does have a history of a prosthetic urethral valve that he may not be opening to emptying his bladder often enough. He clinical showed improvement initially and his WBC count did start to modestly decline; it did, however trend upward. Urology was involved and his urethral valve was opened and remained so. On the AM of transfer he became obtunded and developed respiratory failure and worsening renal failure. He was transferred to the ICU and intubated. His creatinine was 5 and K+ > 6. IV D50 and IV insulin given as well as a dose of lokalma via OG tube. CT head was negative. CT chest/abd/pelvis showed pneumonia, bilateral perinephric stranding and mild hydronephrosis. A small amt of subhepatic fluid and fluid in the right paracolic gutter. He will transfer to [facility] for further specialty care. Home Meds and New Rx's Prescriptions: No Action torsemide 20 mg Tablet 20 mg PO DAILY RF: 0 cetirizine [Zyrtec] 10 mg Tablet 10 mg PO DAILY RF: 0 omeprazole 40 mg Capsule,Delayed Release(Dr/Ec) 40 mg PO DAILY RF: 0 aspirin [Aspir-81] 81 mg Tablet,Delayed Release (Dr/Ec) 81 mg PO DAILY RF: 0 hydrocortisone 1 % Cream 1 applic TOPICAL BID PRNRF: 0 metformin 1,000 mg Tablet 1,000 mg PO BID RF: 0 verapamil 240 mg Tablet Extended Release 240 mg PO HS RF: 0 montelukast 10 mg Tablet 10 mg PO DAILY RF: 0 nystatin 100,000 unit/gram Powder 1 applic TOPICAL TID RF: 0 zolpidem [Ambien] 10 mg Tablet 10 mg PO DAILY RF: 0 albuterol sulfate [ProAir HFA] 90 mcg/actuation Hfa Aerosol Inhaler 1 - 2 puff INHALATION Q4H PRN PRNRF: 0 clotrimazole 1 % Cream 1 applic TOPICAL TID RF: 0 ipratropium bromide 0.02 % Solution See Rx Instructions .ROUTE .COMPLEX RF: 0 pregabalin 150 mg Capsule 150 mg PO BID RF: 0 Levemir Flexpen 100 unit/mL (3 mL) Insulin Pen 60 unit SUBCUT DAILY AM RF: 0 Levemir FlexTouch U-100 Insuln 100 unit/mL (3 mL) Insulin Pen 65 unit SUBCUT HS RF: 0 Januvia 100 mg Tablet 100 mg PO DAILY RF: 0 diclofenac sodium [Voltaren] 1 % Gel 1 applic TOPICAL BID RF: 0 Victoza 3-Pj 0.6 mg/0.1 mL (18 mg/3 mL) Pen Injector 1.8 mg SUBCUT DAILY RF: 0 Myrbetriq 50 mg Tablet Extended Release 24 Hr 50 mg PO DAILY RF: 0 metoprolol tartrate 75 mg Tablet 75 mg PO BID RF: 0 Probiotic 100 billion cell Capsule 1 cap PO DAILY RF: 0 Nucala 100 mg/mL Syringe 100 mg SUBCUT Q4W RF: 0 Discharge Instructions Stand Alone Forms: Nursing Discharge Form Referrals: Jax Higginbotham [Primary Care Provider] - 01/26/21 9:20 am (Appointment will be with Dr. Ballard) Activity:: Bedrest Equipment/Supplies:: No Equipment Needed Diet:: NPO Discharge Orders Discharge Orders: Discharge Order (Routine); Ordered 01/24/21 Ordered By: Gerald Gaston DS: Summary Time Spent with Patient providing and/or coordinating discharge services: Greater than 30 minutes Status at Discharge Functional status at discharge: bed bound Overall status at discharge: patient is not back to baseline Mental Status: other (obtunded. Intubated) Speech and Movement: other Mood: other Affect: other Exam Psych Mental Status: other Speech and Movement: other Mood: other Affect: other DS: Data Vitals/I&O Vitals and I&O: Vital Signs Temperature 36 C L 01/24/21 11:21 Temperature Source Temporal Artery Scan 01/24/21 11:21 Pulse 85 01/24/21 15:25 Pulse Rhythm Regular 01/24/21 05:02 Pulse 82 01/24/21 13:30 Respiratory Rate 20 01/24/21 13:30 Respiratory Effort Drooling 01/24/21 11:21 Respiratory Depth Shallow 01/24/21 07:30 Respiratory Pattern Bradypnea 01/24/21 07:30 Blood Pressure 119/85 01/24/21 15:25 Blood Pressure Mean 87 01/24/21 11:45 Blood Pressure Position Supine 01/24/21 07:30 Pulse Oximetry 97 01/24/21 13:30 Respiratory End-tidal CO2 40 01/24/21 13:30 Oxygen Delivery Method Room Air 01/24/21 07:54 Oxygen Flow Rate 0 01/24/21 07:54 Fraction of Inspired Oxygen (FIO2) 40 01/24/21 13:30 Pain Level 0 01/24/21 07:30 Comment 01/24/21 07:15 Intake & Output 01/23/21 01/24/21 01/24/21 23:59 11:59 23:59 Intake Total 3035.833 / 3525.833 971.293 / 1023.443 52.150 / 1023.443 Output Total 0 / 0 Balance 3035.833 / 3525.833 971.293 / 1023.443 52.150 / 1023.443 Weight 115.6 kg Intake: IV 2345.833 / 2355.833 971.293 / 1023.443 52.150 / 1023.443 Oral 690 / 1170 Output: Gastric Drainage 0 / 0 Oral 0 / 0 Other: Urine Color Yellow Urine Odor Normal None Comment pt was incontient of urine prior to bladder scan hx of incontinence, no urine at this time Stool Size Large Stool Characteristics Soft Brown Voiding Methods Diaper Diaper Incontinent Incontinent Data Completed and Pending Labs on day of discharge: Labs from last 24 hours 01/24/21 01/24/21 01/24/21 Unknown 17:00 14:00 WBC RBC Hgb Hct MCV MCH MCHC RDW Plt Count MPV Immature Gran % Neutrophils % Lymphocytes % Monocytes % Eosinophils % Basophils % Nucleated RBC % Absolute Neutrophils Absolute Lymphocytes Absolute Monocytes Absolute Eosinophils Absolute Basophils RBC Morphology Polychromasia Macrocytosis ABG Sample Site Pending ABG pH Pending ABG pCO2 Pending ABG pO2 Pending ABG HCO3 Pending ABG Total CO2 Pending ABG O2 Saturation Pending ABG Base Excess Pending VBG Lactate Oxygen Liter Flow FiO2 Sodium Pending Potassium Pending Chloride Pending Carbon Dioxide Pending Anion Gap Pending BUN Pending Creatinine Pending Estimated GFR/1.73 m2 Pending Glucose Pending Calcium Pending Total Bilirubin Pending AST Pending ALT Pending Alkaline Phosphatase Pending Troponin I < 0.05 Total Protein Pending Albumin Pending Procalcitonin 01/24/21 01/24/21 01/24/21 12:14 12:14 09:42 WBC RBC Hgb Hct MCV MCH MCHC RDW Plt Count MPV Immature Gran % Neutrophils % Lymphocytes % Monocytes % Eosinophils % Basophils % Nucleated RBC % Absolute Neutrophils Absolute Lymphocytes Absolute Monocytes Absolute Eosinophils Absolute Basophils RBC Morphology Polychromasia Macrocytosis ABG Sample Site Left Radial ABG pH 7.31 L ABG pCO2 44 ABG pO2 52 L ABG HCO3 22 ABG Total CO2 21 L ABG O2 Saturation 86 L ABG Base Excess -4 L VBG Lactate Oxygen Liter Flow 420/20/40+8 FiO2 40 Sodium 139 Potassium 6.1 H* Chloride 104 Carbon Dioxide 24.9 Anion Gap 10.1 BUN 62 H Creatinine 5.1 H* Estimated GFR/1.73 m2 11.21 Glucose 333 H Calcium 7.4 L Total Bilirubin AST ALT Alkaline Phosphatase Troponin I Total Protein Albumin Procalcitonin 0.9 01/24/21 01/24/21 01/24/21 08:16 07:42 07:42 WBC RBC Hgb Hct MCV MCH MCHC RDW Plt Count MPV Immature Gran % Neutrophils % Lymphocytes % Monocytes % Eosinophils % Basophils % Nucleated RBC % Absolute Neutrophils Absolute Lymphocytes Absolute Monocytes Absolute Eosinophils Absolute Basophils RBC Morphology Polychromasia Macrocytosis ABG Sample Site ABG pH ABG pCO2 ABG pO2 ABG HCO3 ABG Total CO2 ABG O2 Saturation ABG Base Excess VBG Lactate 0.8 Oxygen Liter Flow FiO2 Sodium 138 D 152 H D Potassium 6.6 H* D 2.1 L* D Chloride 103 128 H Carbon Dioxide 25.9 10.6 L Anion Gap 9.1 13.4 H BUN 60 H D 24 H D Creatinine 5.1 H* D 1.4 H D Estimated GFR/1.73 m2 11.21 49.82 Glucose 398 H D 178 H D Calcium 7.8 L < 5.0 L* Total Bilirubin AST ALT Alkaline Phosphatase Troponin I Total Protein Albumin Procalcitonin 01/24/21 01/24/21 01/24/21 07:42 07:39 06:15 WBC 21.02 H D RBC 3.65 L Hgb 12.2 L Hct 39.0 L MCV 106.8 H D MCH 33.4 H MCHC 31.3 L RDW 13.2 Plt Count 427 H MPV 10.0 Immature Gran % 1.5 Neutrophils % 87.7 Lymphocytes % 5.5 Monocytes % 4.9 Eosinophils % 0.0 Basophils % 0.4 Nucleated RBC % 0 Absolute Neutrophils 18.43 H Absolute Lymphocytes 1.16 L Absolute Monocytes 1.03 H Absolute Eosinophils 0.00 Absolute Basophils 0.08 RBC Morphology See Below Polychromasia Present Macrocytosis 2+ ABG Sample Site Unknown ABG pH 7.15 L* ABG pCO2 64 H* ABG pO2 80 ABG HCO3 23 ABG Total CO2 22 L ABG O2 Saturation 93 L ABG Base Excess -6 L VBG Lactate Oxygen Liter Flow FiO2 Sodium Potassium Cancelled Chloride Carbon Dioxide Anion Gap BUN Creatinine Estimated GFR/1.73 m2 Glucose Calcium Total Bilirubin AST ALT Alkaline Phosphatase Troponin I Total Protein Albumin Procalcitonin 01/24/21 06:15 WBC RBC Hgb Hct MCV MCH MCHC RDW Plt Count MPV Immature Gran % Neutrophils % Lymphocytes % Monocytes % Eosinophils % Basophils % Nucleated RBC % Absolute Neutrophils Absolute Lymphocytes Absolute Monocytes Absolute Eosinophils Absolute Basophils RBC Morphology Polychromasia Macrocytosis ABG Sample Site ABG pH ABG pCO2 ABG pO2 ABG HCO3 ABG Total CO2 ABG O2 Saturation ABG Base Excess VBG Lactate Oxygen Liter Flow FiO2 Sodium 139 Potassium 6.9 H* D Chloride 104 Carbon Dioxide 24.5 Anion Gap 10.5 BUN 59 H D Creatinine 5.0 H* D Estimated GFR/1.73 m2 11.46 Glucose 334 H D Calcium 7.9 L Total Bilirubin AST ALT Alkaline Phosphatase Troponin I Total Protein Albumin Procalcitonin 01/24/21 16:37 Urine - Cath Straight Urine Culture - Pending 01/24/21 15:20 Blood Blood Culture - Pending 01/24/21 14:00 Blood Blood Culture - Pending Preliminary micro results at discharge 01/24/21 16:37 Urine Culture - Pending Urine - Cath Straight 01/24/21 15:20 Blood Culture - Pending Blood 01/24/21 14:00 Blood Culture - Pending Blood 01/19/21 23:00 Blood Culture - Preliminary Blood NO GROWTH 96 HOURS 01/19/21 22:50 Blood Culture - Preliminary Blood NO GROWTH 96 HOURS COUNT INCLUDES THE [facility] Medical History Bilateral hydronephrosis Diabetes Surgical History History of bilateral knee replacement History of implantation of artificial sphincter Social History Smoking/Tobacco Use Status: Never Smoking risk assessment performed?: Yes Alcohol Intake: never Substance use type: does not use Do you feel safe at home: Yes Do you feel safe in your relationship?: Yes
[2021-01-24] MEDS: fentaNYL 100 MCG/2 ML VIAL IVP (16:41)
[2021-01-24] MEDS: fentaNYL 100 MCG/2 ML VIAL (16:41)
--- NOTE | 2021-01-24 17:05 | NUR.NOTE ---
Called at 0831 to inform her that pt has become unresponsive and that kidney status has worsened. Informed that pt has been transferred to the ICU and is currently on a ventilator. will be in shortly. Nursing Note:
[2021-01-24 17:38] LABS: ALT 18 U/L (16-63); AST 14 U/L (15-37); Alkaline Phosphatase 47 U/L (46-116); Anion Gap 11.1 mmol/L (3-11); BUN 63 mg/dL (7-18); Bilirubin, Total 0.2 mg/dL (0.2-1.0); CO2 22.9 mmol/L (21.0-32.0); Calcium 7.2 mg/dL (8.5-10.1); Chloride 106 mmol/L (98-107); Estimated GFR 10.27 (mL/min/1.73m2); Glucose 266 mg/dL (74-106); Potassium 5.3 mmol/L (3.5-5.1); Sodium 140 mmol/L (136-145); Total Protein 5.8 g/dL (6.4-8.2)
[2021-01-24 17:40] LABS: CREATININE 5.5 mg/dL (0.70-1.30)
== END 2021-01-24 18:00 | DRG 871 ==
LOC: ER 22:48 → MS 23:42 → ICU 01-24 07:46
PROVIDERS: Family Medicine; Nurse Practitioner Acute Care; Nurse Practitioner Family; Admitting Provider Internal Medicine; Emergency Provider Registered Nurse Emergency; PCP Family Medicine; Visit Provider Internal Medicine
DX: A41.9 Sepsis, unspecified organism (principal); N17.0 Acute kidney failure with tubular necrosis; R09.2 Respiratory arrest; J69.0 Pneumonitis due to inhalation of food and vomit; J96.00 Acute respiratory failure, unspecified whether with hypoxia or hypercapnia; I47.1 Supraventricular tachycardia; N13.8 Other obstructive and reflux uropathy; N13.6 Pyonephrosis; E87.2 Acidosis; F05 Delirium due to known physiological condition; R65.20 Severe sepsis without septic shock; E86.0 Dehydration; Z79.4 Long term (current) use of insulin; E11.9 Type 2 diabetes mellitus without complications; J44.9 Chronic obstructive pulmonary disease, unspecified; I11.0 Hypertensive heart disease with heart failure; Z20.822 Contact with and (suspected) exposure to COVID-19; R31.9 Hematuria, unspecified; B96.4 Proteus (mirabilis) (morganii) as the cause of diseases classified elsewhere; E87.6 Hypokalemia; Z85.46 Personal history of malignant neoplasm of prostate; R10.30 Lower abdominal pain, unspecified; N39.45 Continuous leakage; E87.5 Hyperkalemia
CPT/HCPCS: 36415; 71250; 71275; 76770; 80048; 80053; 82805; 84145; 85027; 87040; 87077; 87635; 93005; 94640; 96365; 99222; 99233; 99285; J1650; 70450; 71045; 71046; 72146; 74022; 74176; 81003; 81015; 83605; 83735; 83880; 84132; 84484; 85025; 86140; 87086; 87186; 93010; 99231; 99232; 99239; J0131; J0456; J0696; J1940; J2060; J3010; J3490; J7613

== ENCOUNTER 2021-01-30 12:12 | Outpatient (REF) | payer MEDICARE, BC, SELFPAY ==
[2021-01-30 16:26] LABS: Abs Immature Grans 0.14 10^3/uL (0.0-0.06); Absolute Basophil Count 0.02 10^3/uL (0.0-0.2); Absolute Eosinophil Count 0.04 10^3/uL (0.0-0.7); Absolute Lymphocyte Count 1.32 10^3/uL (1.2-3.4); Absolute Monocyte Count 0.52 10^3/uL (0.1-0.8); Absolute Neutrophil Count 6.45 10^3/uL (1.2-6.7); Basophils % 0.2; Eosinophils % 0.5; HCT 35.6 % (40.0-50.0); HGB 11.5 g/dL (13.5-17.5); Immature Grans % 1.6; Lymphocytes % 15.5; MCH 33.1 pg (27.0-33.0); MCHC 32.3 % (32.0-36.0); MCV 102.6 fL (80-95); MPV 9.9 fL (8.0-11.0); Monocytes % 6.1; Neutrophils % 76.1; Nucleated RBC 0 %; Platelet Count 369 10^3/uL (130-400); RBC 3.47 10^6/uL (4.36-5.78); RDW-SD 48.8 fL; WBC 8.49 10^3/uL (4.4-10.8)
[2021-01-30 16:33] LABS: Anion Gap 8.8 mmol/L (3-11); BUN 22 mg/dL (7-18); CO2 27.2 mmol/L (21.0-32.0); CREATININE 0.9 mg/dL (0.70-1.30); Calcium 8.4 mg/dL (8.5-10.1); Chloride 109 mmol/L (98-107); Glucose 78 mg/dL (74-106); Potassium 3.9 mmol/L (3.5-5.1); Sodium 145 mmol/L (136-145)
== END 2021-01-30 12:13 | disposition home or self-care (01) ==
LOC: NCHCN 12:12
PROVIDERS: PCP Family Medicine; Visit Provider Family Medicine
DX: I50.31 Acute diastolic (congestive) heart failure (principal)
CPT/HCPCS: 80048; 85025

== ENCOUNTER 2021-02-14 19:09 | Outpatient (REF) | payer MEDICARE, BC, SELFPAY ==
[2021-02-14 22:00] LABS: Abs Immature Grans 0.02 10^3/uL (0.0-0.06); Absolute Basophil Count 0.01 10^3/uL (0.0-0.2); Absolute Eosinophil Count 0.03 10^3/uL (0.0-0.7); Absolute Lymphocyte Count 1.27 10^3/uL (1.2-3.4); Absolute Monocyte Count 0.44 10^3/uL (0.1-0.8); Absolute Neutrophil Count 4.53 10^3/uL (1.2-6.7); Basophils % 0.2; Eosinophils % 0.5; HCT 35.1 % (40.0-50.0); HGB 11.6 g/dL (13.5-17.5); Immature Grans % 0.3; Lymphocytes % 20.2; MCH 32.8 pg (27.0-33.0); MCV 99.2 fL (80-95); MPV 11.1 fL (8.0-11.0); Neutrophils % 71.8; Nucleated RBC 0 %; RBC 3.54 10^6/uL (4.36-5.78); RDW 14.6 % (11.8-14.1); RDW-SD 53.8 fL
[2021-02-14 22:04] LABS: Platelet Count 220 10^3/uL (130-400)
[2021-02-14 22:39] LABS: Anion Gap 10.9 mmol/L (3-11); BUN 18 mg/dL (7-18); CO2 28.1 mmol/L (21.0-32.0); Calcium 8.8 mg/dL (8.5-10.1); Chloride 104 mmol/L (98-107); Glucose 99 mg/dL (74-106); Potassium 4.3 mmol/L (3.5-5.1); Sodium 143 mmol/L (136-145)
[2021-02-14 22:40] LABS: Folate > 20.0 ng/mL (8.6-20.0); Vitamin B12 < 80 pg/mL (193-986)
== END 2021-02-14 19:10 | disposition home or self-care (01) ==
LOC: NCHCN 19:09
PROVIDERS: PCP Family Medicine; Visit Provider Registered Nurse
DX: D50.9 Iron deficiency anemia, unspecified (principal); K14.0 Glossitis; Z87.448 Personal history of other diseases of urinary system
CPT/HCPCS: 80048; 82607; 82746; 85025

== ENCOUNTER 2021-04-26 22:27 | Outpatient (REF) | payer MEDICARE, BC, SELFPAY ==
[2021-04-26 22:07] LABS: ALT 20 U/L (16-63); AST 11 U/L (15-37); Albumin 3.3 g/dL (3.4-5.0); Alkaline Phosphatase 50 U/L (46-116); Anion Gap 7.6 mmol/L (3-11); BUN 26 mg/dL (7-18); Bilirubin, Total 0.2 mg/dL (0.2-1.0); CO2 31.4 mmol/L (21.0-32.0); CREATININE 1.3 mg/dL (0.70-1.30); Calcium 8.7 mg/dL (8.5-10.1); Chloride 103 mmol/L (98-107); Estimated GFR 54.26 (mL/min/1.73m2); Glucose 152 mg/dL (74-106); NT-proBNP 187 pg/mL (<300); Potassium 4.2 mmol/L (3.5-5.1); Sodium 142 mmol/L (136-145); Total Protein 6.5 g/dL (6.4-8.2)
== END 2021-04-26 22:28 | disposition home or self-care (01) ==
LOC: NCHCN 22:27
PROVIDERS: PCP Family Medicine; Visit Provider Nurse Practitioner Family
DX: I50.32 Chronic diastolic (congestive) heart failure (principal); R14.0 Abdominal distension (gaseous); R06.2 Wheezing
CPT/HCPCS: 80053; 83880

== ENCOUNTER 2021-08-14 10:30 | Outpatient (REF) | payer MEDICARE, BC, SELFPAY ==
[2021-08-14 18:30] LABS: Bilirubin Negative (Negative); Blood Large (Negative); Clarity Cloudy (Clear); Glucose Negative (Negative); Ketones Negative (Negative); Leukocyte Esterase Moderate (Negative); Nitrite Negative (Negative); Specific Gravity 1.025 (1.005-1.025); Urobilinogen 0.2 EU/dL (Up TO 0.2); pH 5.5 (5-8)
[2021-08-14 19:15] LABS: C & S Indicated? C&S Done As Ordered; RBC >50 HPF (0-2); WBC >50 HPF (0-5)
== END 2021-08-14 10:31 | disposition home or self-care (01) ==
LOC: LBN 10:30
PROVIDERS: PCP Family Medicine; Visit Provider Urology
DX: N39.0 Urinary tract infection, site not specified (principal)
CPT/HCPCS: 87077; 81003; 81015; 87086; 87186

== ENCOUNTER 2022-02-18 20:56 | Outpatient (REF) | payer MEDICARE, BC, SELFPAY | END 2022-02-18 20:57 | disposition home or self-care (01) | LOC: LBN 20:56 | PROVIDERS: PCP Family Medicine; Visit Provider Urology | DX: C61 Malignant neoplasm of prostate (principal); Z87.440 Personal history of urinary (tract) infections | CPT/HCPCS: 87077; 87086; 87186 ==

== ENCOUNTER 2022-03-05 12:54 | Outpatient (REF) | payer MEDICARE, BC, SELFPAY ==
[2022-03-05 21:15] LABS: ALT 27 U/L (16-63); AST 19 U/L (15-37); Albumin 3.5 g/dL (3.4-5.0); Alkaline Phosphatase 47 U/L (46-116); Anion Gap 8.4 mmol/L (3-11); BUN 25 mg/dL (7-18); Bilirubin, Total 0.3 mg/dL (0.2-1.0); CO2 31.6 mmol/L (21.0-32.0); CREATININE 1.5 mg/dL (0.70-1.30); Calcium 8.9 mg/dL (8.5-10.1); Chloride 100 mmol/L (98-107); Cholesterol 201 mg/dL (<200); Estimated GFR 48.85 (mL/min/1.73m2); Glucose 153 mg/dL (74-106); HDL Cholesterol 33 mg/dL (40-60); Potassium 3.9 mmol/L (3.5-5.1); Sodium 140 mmol/L (136-145); Total Protein 7.2 g/dL (6.4-8.2); Triglyceride 479 mg/dL (<150)
[2022-03-05 21:27] LABS: LDL CHOLESTEROL 110 mg/dL (<100)
== END 2022-03-05 12:55 | disposition home or self-care (01) ==
LOC: NCHCN 12:54
PROVIDERS: PCP Family Medicine; Visit Provider Family Medicine
DX: I10 Essential (primary) hypertension (principal); E78.5 Hyperlipidemia, unspecified
CPT/HCPCS: 80053; 80061; 83721

== ENCOUNTER 2022-03-06 22:35 | Outpatient (REF) | payer MEDICARE, BC, SELFPAY ==
[2022-03-07 18:23] LABS: Albumin ug/mg Crea 148 (<30); Albumin, Ur 7.4 mg/dL (See Note)
== END 2022-03-06 22:36 | disposition home or self-care (01) ==
LOC: NCHCN 22:35
PROVIDERS: PCP Family Medicine; Visit Provider Family Medicine
DX: E11.9 Type 2 diabetes mellitus without complications (principal)
CPT/HCPCS: 82043; 82570

== ENCOUNTER 2022-04-22 17:55 | Outpatient (REF) | payer MEDICARE, BC, SELFPAY ==
[2022-04-22 20:25] LABS: Bilirubin Negative (Negative); Blood Small (Negative); Clarity Cloudy (Clear); Glucose Negative (Negative); Ketones Negative (Negative); Leukocyte Esterase Moderate (Negative); Nitrite Positive (Negative); Specific Gravity 1.015 (1.005-1.025); Urobilinogen 0.2 EU/dL (Up TO 0.2); pH 8.5 (5-8)
[2022-04-22 20:35] LABS: Bacteria Many HPF (Negative); Crystals Negative HPF (Negative); Epithelial Cells Rare HPF (Negative); WBC 20-50 HPF (0-5)
[2022-04-22 20:36] LABS: C & S Indicated? C&S Done As Ordered; Casts Negative LPF (Negative); Mucus Trace (Negative)
== END 2022-04-22 17:56 | disposition home or self-care (01) ==
LOC: LBN 17:55
PROVIDERS: PCP Family Medicine; Visit Provider Urology
DX: R31.0 Gross hematuria (principal)
CPT/HCPCS: 87077; 81003; 81015; 87086; 87186

== ENCOUNTER 2022-06-20 15:56 | Outpatient (REF) | payer MEDICARE, BC, SELFPAY ==
[2022-06-20 17:29] LABS: Bilirubin Negative (Negative); Blood Large (Negative); Clarity Sl Cloudy (Clear); Glucose Negative (Negative); Ketones Negative (Negative); Leukocyte Esterase Large (Negative); Nitrite Negative (Negative); Urobilinogen 0.2 EU/dL (Up TO 0.2)
[2022-06-20 17:34] LABS: Bacteria Moderate HPF (Negative); C & S Indicated? C&S Done As Ordered; Casts Negative LPF (Negative); Crystals Negative HPF (Negative); Epithelial Cells Few HPF (Negative); Mucus Negative (Negative); WBC >50 HPF (0-5)
== END 2022-06-20 15:57 | disposition home or self-care (01) ==
LOC: LBN 15:56
PROVIDERS: PCP Family Medicine; Visit Provider Urology
DX: N39.0 Urinary tract infection, site not specified (principal)
CPT/HCPCS: 87077; 81003; 81015; 87086; 87186

== ENCOUNTER 2022-06-27 14:33 | Outpatient (REF) | payer MEDICARE, BC, SELFPAY ==
--- OUTSIDE RECORDS SUMMARY | 2022-06-27 14:35 | XMS_ITS | CCD ---
:1950 Author Care Team Providers Name Role Phone ROSA PEREZ Attending Physician Unavailable Vital Signs Unknown or Not Available. Allergies Allergy Code Allergy Type Reaction Status PENICILLINS (CLASS) 12044 Drug allergy ALLERGY IS QUESTIONAB LE Active METHOTREXATE 6851 Drug allergy RASH Active Procedures Unknown or Not Available. History of Immunizations Unknown or Not Available. Problems Unknown or Not Available. Results Unknown or Not Available. Active Medications Medication Code Dose Units Frequency Route Modification Start Date/Time Albuterol 489474 1 EACH NEEDED INHALATION 8 Sulfate 0.5% EVERY 4 11:48 Inhalation HOURS Solution Prescription Detail 1 EACH INHALATION NEEDED EVERY 4 HOURS Ambien 10MG Oral Tablet [id number] 10 MILLIGRAMS BEDTIME ORAL 08/14/2017 11:48 Prescription Detail TAKE 10 MILLIGRAMS ORAL BEDT JONA Aspir Low 81MG Oral [id number] 81 MILLIGRAMS DAILY ORAL 0 08/14/2017 11:48 Tablet, Enteric Coated Prescription Detail TAKE 81 MILLIGRAMS ORAL MIGUEL Y Azithromycin 250MG [id number] 250 MILLIGRAMS DAILY BY MOUTH 0 08/14/2017 11:48 Oral Tablet Prescription Detail TAKE 250 MILLIGRAMS BY MOUTH DAILY Budesonide 1MG/2ML 792291 1 EACH TWICE A DAY INHALATION 08/14/2017 11:48 Inhalation Suspension Prescription Detail 1 EACH INHALATION TWICE A D AY Cefuroxime Axetil 004622 500 MILLIGRAMS EVERY 12 BY MOUTH 0 08/14/2017 11:48 250MG Oral Tablet HOURS Prescription Detail TAKE 500 MILLIGRAMS BY MOUTH EVERY 12 HOURS Ferrous Sulfate 325 351348 325 MG THREE TIMES A DAY ORAL 08/14/2017 11:48 MG Oral Tablet, Enteric Coated Prescription Detail TAKE 325 MG ORAL THREE TIMES A DAY Glucophage 1000MG Oral [id number] 1 TABLET TWICE A DAY ORAL 08/14/2017 11:48 Tablet Prescription Detail TAKE 1 TABLET ORAL TWICE A D AY Ibuprofen 800MG Oral [id number] 800 MILLIGRAMS TWICE A DAY ORAL 08/14/2017 11:48 Tablet Prescription Detail TAKE 800 MILLIGRAMS ORAL TWI CE A DAY Lantus SoloStar 100U/1ML Subcutaneous 201779 1 DAILY OR AL 08/14/2017 11:48 Solution Prescription Detail TAKE 1 ORAL DAILY LEFLUNOMIDE 10 MG TABLET 0 10 MILLIGRAMS DAILY ORAL 08/14/2017 11:48 Prescription Detail TAKE 10 MILLIGRAMS ORAL MIGUEL Y Levitra 10MG Oral 041350 10 MILLIGRAMS NEEDED ORAL 0 08/14/2017 11:48 Tablet Prescription Detail TAKE 10 MILLIGRAMS ORAL N EEDED Lisinopril 5MG Oral Tablet 558034 5 MILLIGRAMS DAILY ORAL 08/14/2017 11:48 Prescription Detail TAKE 5 MILLIGRAMS ORAL DAILY Lyrica 150MG Oral [id number] 150 MILLIGRAMS TWICE A DAY ORAL 08/14/2017 11:48 Capsule Prescription Detail TAKE 150 MILLIGRAMS ORAL TWI CE A DAY Nasonex 0.05MG/Actuation Nasal 1071913 1 EACH DAILY NASAL 08/14/2017 11:48 [place] Prescription Detail SPRAY 1 EACH NASAL DAILY oseltamivir 039075 75 MILLIGRAMS TWICE A DAY BY MOUTH 07/25 11:48 phosphate 75MG Oral Capsule Prescription Detail TAKE 75 MILLIGRAMS BY MOUTH TWICE A DAY Potassium Chloride 20MEQ Oral 2961036 20 MEQ DAILY ORAL 08/14/2017 11:48 Tablet, Extended Release Prescription Detail TAKE 20 MEQ ORAL DAILY predniSONE 20MG 615477 60 MILLIGRAMS DAILY WITH BY MOUTH 0 08/14/2017 11:48 Oral Tablet FOOD Prescription Detail TAKE 60 MILLIGRAMS BY MOUTH DAILY WITH FOOD ProAir RespiClick 9602760 1 PUFF NEEDED FOUR INHALATION 08/14/2017 11:48 117MCG/1 Actuation TIMES A DAY Inhalation Powder Prescription Detail 1 PUFF INHALATION NEEDED FOUR TIMES A DAY Singulair 10MG Oral Tablet [id number] 10 MILLIGRAMS DAILY ORAL 08/14/2017 11:48 Prescription Detail TAKE 10 MILLIGRAMS ORAL MIGUEL Y Tamsulosin HCl 0.4MG 817963 0.8 MILLIGRAMS BEDTIME BY MOUTH 08/14/2017 11:48 Oral Capsule Prescription Detail TAKE 0.8 MILLIGRAMS BY MOUTH BEDTIME Verapamil HCl 240MG Oral 204942 240 MILLIGRAMS DAILY ORAL 08/14/2017 11:48 Tablet, Extended Release Prescription Detail TAKE 240 MILLIGRAMS ORAL CRUZITO LY ZyrTEC 10MG Oral Tablet [id number] 10 MILLIGRAMS DAILY ORAL 08/14/2017 11:48 Prescription Detail TAKE 10 MILLIGRAMS ORAL MIGUEL Y Symbicort 160MCG-4.5MCG/1 Actu 0537096 1 PUFF DAILY ORAL 08/02/2015 13:22 Inhalation Aerosol Liquid Prescription Detail TAKE 1 PUFF ORAL DAILY Medications Administered During Visit Unknown or Not Available. Encounters Encounter Diagnosis Diagnosis Code Start Date Wheezing [id number] 04/26/2021 Social History Smoking Status Code Start Date End Date Never smoker [id number] Patient Decision Aids Unknown or Not Available. Discharge Instructions You were admitted to [facility] on 04/26/2021 17:21 with a principal diagnosis of Wheezing You were discharged from [facility] on 04/26/2021 17:21 Should you have any questions prior to d ischarge, please contact a member of your healthcare team. If you have left the ho spital and have any questions, please contact your primary care physician. Chief Complaint and Reason For Visit Unknown or Not Available. Function Status Unknown or Not Available. Plan of Care Unknown or Not Available. Referral/Transition of Care Unknown or Not Available.
--- OUTSIDE RECORDS SUMMARY | 2022-06-27 14:36 | XMS_ITS | CCD ---
:1950 Author Care Team Providers Name Role Phone DIONE ADAIR Attending Physician Unavailable Vital Signs Unknown or Not Available. Allergies Allergy Code Allergy Type Reaction Status PENICILLINS (CLASS) 90108 Drug allergy ALLERGY IS QUESTIONAB LE Active METHOTREXATE 6851 Drug allergy RASH Active Procedures Unknown or Not Available. History of Immunizations Unknown or Not Available. Problems Unknown or Not Available. Results Unknown or Not Available. Active Medications Medication Code Dose Units Frequency Route Modification Start Date/Time Albuterol 807997 1 EACH NEEDED INHALATION 8 Sulfate 0.5% EVERY 4 11:48 Inhalation HOURS Solution Prescription Detail 1 EACH INHALATION NEEDED EVERY 4 HOURS Ambien 10MG Oral Tablet 678984 10 MILLIGRAMS BEDTIME ORAL 08/14/2017 11:48 Prescription Detail TAKE 10 MILLIGRAMS ORAL BEDT JONA Aspir Low 81MG Oral 3613240 81 MILLIGRAMS DAILY ORAL 0 08/14/2017 11:48 Tablet, Enteric Coated Prescription Detail TAKE 81 MILLIGRAMS ORAL MIGUEL Y Azithromycin 250MG 369665 250 MILLIGRAMS DAILY BY MOUTH 0 08/14/2017 11:48 Oral Tablet Prescription Detail TAKE 250 MILLIGRAMS BY MOUTH DAILY Budesonide 1MG/2ML 879452 1 EACH TWICE A DAY INHALATION 08/14/2017 11:48 Inhalation Suspension Prescription Detail 1 EACH INHALATION TWICE A D AY Cefuroxime Axetil 112861 500 MILLIGRAMS EVERY 12 BY MOUTH 0 08/14/2017 11:48 250MG Oral Tablet HOURS Prescription Detail TAKE 500 MILLIGRAMS BY MOUTH EVERY 12 HOURS Ferrous Sulfate 325 389455 325 MG THREE TIMES A DAY ORAL 08/14/2017 11:48 MG Oral Tablet, Enteric Coated Prescription Detail TAKE 325 MG ORAL THREE TIMES A DAY Glucophage 1000MG Oral 986107 1 TABLET TWICE A DAY ORAL 08/14/2017 11:48 Tablet Prescription Detail TAKE 1 TABLET ORAL TWICE A D AY Ibuprofen 800MG Oral 394128 800 MILLIGRAMS TWICE A DAY ORAL 08/14/2017 11:48 Tablet Prescription Detail TAKE 800 MILLIGRAMS ORAL TWI CE A DAY Lantus SoloStar 100U/1ML Subcutaneous 871792 1 DAILY OR AL 08/14/2017 11:48 Solution Prescription Detail TAKE 1 ORAL DAILY LEFLUNOMIDE 10 MG TABLET 0 10 MILLIGRAMS DAILY ORAL 08/14/2017 11:48 Prescription Detail TAKE 10 MILLIGRAMS ORAL MIGUEL Y Levitra 10MG Oral 311608 10 MILLIGRAMS NEEDED ORAL 0 08/14/2017 11:48 Tablet Prescription Detail TAKE 10 MILLIGRAMS ORAL N EEDED Lisinopril 5MG Oral Tablet 575355 5 MILLIGRAMS DAILY ORAL 08/14/2017 11:48 Prescription Detail TAKE 5 MILLIGRAMS ORAL DAILY Lyrica 150MG Oral 334220 150 MILLIGRAMS TWICE A DAY ORAL 08/14/2017 11:48 Capsule Prescription Detail TAKE 150 MILLIGRAMS ORAL TWI CE A DAY Nasonex 0.05MG/Actuation Nasal 8516145 1 EACH DAILY NASAL 08/14/2017 11:48 [place] Prescription Detail SPRAY 1 EACH NASAL DAILY oseltamivir 431220 75 MILLIGRAMS TWICE A DAY BY MOUTH 07/25 11:48 phosphate 75MG Oral Capsule Prescription Detail TAKE 75 MILLIGRAMS BY MOUTH TWICE A DAY Potassium Chloride 20MEQ Oral [id number] 20 MEQ DAILY ORAL 08/14/2017 11:48 Tablet, Extended Release Prescription Detail TAKE 20 MEQ ORAL DAILY predniSONE 20MG 837572 60 MILLIGRAMS DAILY WITH BY MOUTH 0 08/14/2017 11:48 Oral Tablet FOOD Prescription Detail TAKE 60 MILLIGRAMS BY MOUTH DAILY WITH FOOD ProAir RespiClick 8497236 1 PUFF NEEDED FOUR INHALATION 08/14/2017 11:48 117MCG/1 Actuation TIMES A DAY Inhalation Powder Prescription Detail 1 PUFF INHALATION NEEDED FOUR TIMES A DAY Singulair 10MG Oral Tablet 063026 10 MILLIGRAMS DAILY ORAL 08/14/2017 11:48 Prescription Detail TAKE 10 MILLIGRAMS ORAL MIGUEL Y Tamsulosin HCl 0.4MG 271264 0.8 MILLIGRAMS BEDTIME BY MOUTH 08/14/2017 11:48 Oral Capsule Prescription Detail TAKE 0.8 MILLIGRAMS BY MOUTH BEDTIME Verapamil HCl 240MG Oral 850613 240 MILLIGRAMS DAILY ORAL 08/14/2017 11:48 Tablet, Extended Release Prescription Detail TAKE 240 MILLIGRAMS ORAL CRUZITO LY ZyrTEC 10MG Oral Tablet [id number] 10 MILLIGRAMS DAILY ORAL 08/14/2017 11:48 Prescription Detail TAKE 10 MILLIGRAMS ORAL MIGUEL Y Symbicort 160MCG-4.5MCG/1 Actu 2480477 1 PUFF DAILY ORAL 08/02/2015 13:22 Inhalation Aerosol Liquid Prescription Detail TAKE 1 PUFF ORAL DAILY Medications Administered During Visit Unknown or Not Available. Encounters Encounter Diagnosis Diagnosis Code Start Date Pain in right shoulder [id number] 11/29/2021 Social History Smoking Status Code Start Date End Date Never smoker [id number] Patient Decision Aids Unknown or Not Available. Discharge Instructions You were admitted to [facility] on 11/29/2021 10:35 with a principal diagnosis of Pain in right shoulder You were discharged from [facility] on 01/23/2022 10:24 Should you have any questions prior to [...]
--- OUTSIDE RECORDS SUMMARY | 2022-06-27 14:36 | XMS_ITS | CCD ---
:1950 Author Care Team Providers Name Role Phone YOLETTE BLANDON Attending Physician Unavailable Vital Signs Unknown or Not Available. Allergies Allergy Code Allergy Type Reaction Status PENICILLINS (CLASS) 92763 Drug allergy ALLERGY IS QUESTIONAB LE Active METHOTREXATE 6851 Drug allergy RASH Active Procedures Unknown or Not Available. History of Immunizations Unknown or Not Available. Problems Unknown or Not Available. Results Unknown or Not Available. Active Medications Medication Code Dose Units Frequency Route Modification Start Date/Time Albuterol 560150 1 EACH NEEDED INHALATION 8 Sulfate 0.5% EVERY 4 11:48 Inhalation HOURS Solution Prescription Detail 1 EACH INHALATION NEEDED EVERY 4 HOURS Ambien 10MG Oral Tablet 142910 10 MILLIGRAMS BEDTIME ORAL 08/14/2017 11:48 Prescription Detail TAKE 10 MILLIGRAMS ORAL BEDT JONA Aspir Low 81MG Oral [id number] 81 MILLIGRAMS DAILY ORAL 0 08/14/2017 11:48 Tablet, Enteric Coated Prescription Detail TAKE 81 MILLIGRAMS ORAL MIGUEL Y Azithromycin 250MG [id number] 250 MILLIGRAMS DAILY BY MOUTH 0 08/14/2017 11:48 Oral Tablet Prescription Detail TAKE 250 MILLIGRAMS BY MOUTH DAILY Budesonide 1MG/2ML 132625 1 EACH TWICE A DAY INHALATION 08/14/2017 11:48 Inhalation Suspension Prescription Detail 1 EACH INHALATION TWICE A D AY Cefuroxime Axetil 484537 500 MILLIGRAMS EVERY 12 BY MOUTH 0 08/14/2017 11:48 250MG Oral Tablet HOURS Prescription Detail TAKE 500 MILLIGRAMS BY MOUTH EVERY 12 HOURS Ferrous Sulfate 325 264460 325 MG THREE TIMES A DAY ORAL 08/14/2017 11:48 MG Oral Tablet, Enteric Coated Prescription Detail TAKE 325 MG ORAL THREE TIMES A DAY Glucophage 1000MG Oral 956286 1 TABLET TWICE A DAY ORAL 08/14/2017 11:48 Tablet Prescription Detail TAKE 1 TABLET ORAL TWICE A D AY Ibuprofen 800MG Oral 400091 800 MILLIGRAMS TWICE A DAY ORAL 08/14/2017 11:48 Tablet Prescription Detail TAKE 800 MILLIGRAMS ORAL TWI CE A DAY Lantus SoloStar 100U/1ML Subcutaneous 702701 1 DAILY OR AL 08/14/2017 11:48 Solution Prescription Detail TAKE 1 ORAL DAILY LEFLUNOMIDE 10 MG TABLET 0 10 MILLIGRAMS DAILY ORAL 08/14/2017 11:48 Prescription Detail TAKE 10 MILLIGRAMS ORAL MIGUEL Y Levitra 10MG Oral 199137 10 MILLIGRAMS NEEDED ORAL 0 08/14/2017 11:48 Tablet Prescription Detail TAKE 10 MILLIGRAMS ORAL N EEDED Lisinopril 5MG Oral Tablet 795116 5 MILLIGRAMS DAILY ORAL 08/14/2017 11:48 Prescription Detail TAKE 5 MILLIGRAMS ORAL DAILY Lyrica 150MG Oral 605755 150 MILLIGRAMS TWICE A DAY ORAL 08/14/2017 11:48 Capsule Prescription Detail TAKE 150 MILLIGRAMS ORAL TWI CE A DAY Nasonex 0.05MG/Actuation Nasal 1029091 1 EACH DAILY NASAL 08/14/2017 11:48 [place] Prescription Detail SPRAY 1 EACH NASAL DAILY oseltamivir 353591 75 MILLIGRAMS TWICE A DAY BY MOUTH 07/25 11:48 phosphate 75MG Oral Capsule Prescription Detail TAKE 75 MILLIGRAMS BY MOUTH TWICE A DAY Potassium Chloride 20MEQ Oral 6782108 20 MEQ DAILY ORAL 08/14/2017 11:48 Tablet, Extended Release Prescription Detail TAKE 20 MEQ ORAL DAILY predniSONE 20MG 741864 60 MILLIGRAMS DAILY WITH BY MOUTH 0 08/14/2017 11:48 Oral Tablet FOOD Prescription Detail TAKE 60 MILLIGRAMS BY MOUTH DAILY WITH FOOD ProAir RespiClick 9320812 1 PUFF NEEDED FOUR INHALATION 08/14/2017 11:48 117MCG/1 Actuation TIMES A DAY Inhalation Powder Prescription Detail 1 PUFF INHALATION NEEDED FOUR TIMES A DAY Singulair 10MG Oral Tablet 624432 10 MILLIGRAMS DAILY ORAL 08/14/2017 11:48 Prescription Detail TAKE 10 MILLIGRAMS ORAL MIGUEL Y Tamsulosin HCl 0.4MG 446483 0.8 MILLIGRAMS BEDTIME BY MOUTH 08/14/2017 11:48 Oral Capsule Prescription Detail TAKE 0.8 MILLIGRAMS BY MOUTH BEDTIME Verapamil HCl 240MG Oral 767475 240 MILLIGRAMS DAILY ORAL 08/14/2017 11:48 Tablet, Extended Release Prescription Detail TAKE 240 MILLIGRAMS ORAL CRUZITO LY ZyrTEC 10MG Oral Tablet 0687707 10 MILLIGRAMS DAILY ORAL 08/14/2017 11:48 Prescription Detail TAKE 10 MILLIGRAMS ORAL MIGUEL Y Symbicort 160MCG-4.5MCG/1 Actu 9627693 1 PUFF DAILY ORAL 08/02/2015 13:22 Inhalation Aerosol Liquid Prescription Detail TAKE 1 PUFF ORAL DAILY Medications Administered During Visit Unknown or Not Available. Encounters Encounter Diagnosis Diagnosis Code Start Date Presence of right artificial knee joint [id number] 06/08/2021 Social History Smoking Status Code Start Date End Date Never smoker [id number] Patient Decision Aids Unknown or Not Available. Discharge Instructions You were admitted to [facility] on 06/08/2021 09:01 with a principal diagnosis of Presence of right artificial knee wilfredo nt You were discharged from [facility] on 07/13/2021 08:37 Should you have any questions prior to [...]
[2022-06-27 14:43] LABS: Anion Gap 8.8 mmol/L (3-11); BUN 22 mg/dL (7-18); CO2 32.2 mmol/L (21.0-32.0); CREATININE 1.5 mg/dL (0.70-1.30); Calcium 8.6 mg/dL (8.5-10.1); Chloride 99 mmol/L (98-107); Estimated GFR 48.85 (mL/min/1.73m2); Glucose 185 mg/dL (74-106); Potassium 3.8 mmol/L (3.5-5.1); Sodium 140 mmol/L (136-145)
== END 2022-06-27 14:34 | disposition home or self-care (01) ==
LOC: NCHCN 14:33
PROVIDERS: PCP Family Medicine; Visit Provider Family Medicine
DX: I10 Essential (primary) hypertension (principal)
CPT/HCPCS: 80048

== ENCOUNTER 2022-07-15 14:58 | Outpatient (REF) | payer MEDICARE, BC, SELFPAY ==
[2022-07-15 16:40] LABS: Bilirubin Negative (Negative); Blood Large (Negative); Clarity Cloudy (Clear); Glucose Negative (Negative); Ketones Negative (Negative); Leukocyte Esterase Moderate (Negative); Nitrite Negative (Negative); Specific Gravity 1.015 (1.005-1.025); Urobilinogen 0.2 EU/dL (Up TO 0.2)
[2022-07-15 16:52] LABS: Bacteria Few HPF (Negative); C & S Indicated? C&S Done As Ordered; Casts Negative LPF (Negative); Crystals Negative HPF (Negative); Epithelial Cells Rare HPF (Negative); Mucus Negative (Negative); RBC >50 HPF (0-2)
== END 2022-07-15 14:59 | disposition home or self-care (01) ==
LOC: LBN 14:58
PROVIDERS: PCP Family Medicine; Visit Provider Urology
DX: N39.0 Urinary tract infection, site not specified (principal)
CPT/HCPCS: 81003; 81015; 87086

== ENCOUNTER 2022-09-03 16:19 | Outpatient (REF) | payer MEDICARE, BC, SELFPAY ==
[2022-09-03 20:46] LABS: HCT 43.3 % (40.0-50.0); HGB 13.9 g/dL (13.5-17.5); MCHC 32.1 % (32.0-36.0); MCV 81 fL (80-95); MPV 11.7 fL (8.0-11.0); Platelet Count 264 10^3/uL (130-400); RBC 5.35 10^6/uL (4.36-5.78); RDW 15.4 % (11.8-14.1); RDW-SD 45.2 fL; WBC 8.76 10^3/uL (4.4-10.8)
[2022-09-03 20:50] LABS: Anion Gap 11.7 mmol/L (3-11); BUN 23 mg/dL (7-18); CO2 29.3 mmol/L (21.0-32.0); CREATININE 1.7 mg/dL (0.70-1.30); Calcium 8.8 mg/dL (8.5-10.1); Chloride 101 mmol/L (98-107); Estimated GFR 42.04 (mL/min/1.73m2); Glucose 139 mg/dL (74-106); Potassium 4.1 mmol/L (3.5-5.1); Sodium 142 mmol/L (136-145)
== END 2022-09-03 16:20 | disposition home or self-care (01) ==
LOC: NCHCN 16:19
PROVIDERS: PCP Family Medicine; Visit Provider Family Medicine
DX: E11.9 Type 2 diabetes mellitus without complications (principal); N18.30 Chronic kidney disease, stage 3 unspecified; R31.0 Gross hematuria
CPT/HCPCS: 80048; 85027

== ENCOUNTER 2022-12-11 22:22 | Outpatient (REF) | payer MEDICARE, BC, SELFPAY ==
[2022-12-11 21:10] LABS: Bilirubin Negative (Negative); Blood Trace-intact (Negative); Clarity Clear (Clear); Glucose Negative (Negative); Ketones Negative (Negative); Leukocyte Esterase Small (Negative); Nitrite Negative (Negative); Urobilinogen 0.2 mg/dL (Up to 0.2)
[2022-12-11 21:19] LABS: Bacteria Few HPF (Negative); C & S Indicated? Yes; Casts Negative LPF (Negative); Crystals Negative HPF (Negative); Epithelial Cells Rare HPF (Negative); Mucus Negative (Negative); RBC 0-2 HPF (0-2)
[2022-12-11 22:41] LABS: COMMENT (LAB VIEW ONLY) < 13.00 mg/dL
== END 2022-12-11 22:23 | disposition home or self-care (01) ==
LOC: NCHCN 22:22
PROVIDERS: PCP Family Medicine; Visit Provider Family Medicine
DX: E11.9 Type 2 diabetes mellitus without complications (principal); N40.0 Benign prostatic hyperplasia without lower urinary tract symptoms; Z87.448 Personal history of other diseases of urinary system; R82.998 Other abnormal findings in urine
CPT/HCPCS: 87077; 81003; 81015; 82043; 82570; 87086; 87186

== ENCOUNTER 2023-12-03 13:18 | Outpatient (REF) | payer MEDICARE, BC, SELFPAY ==
[2023-12-03 16:49] LABS: Hemoglobin A1C 6.1 % (<5.7)
[2023-12-03 16:55] LABS: ALT 30 U/L (16-63); AST 22 U/L (15-37); Albumin 4.1 g/dL (3.4-5.0); Alkaline Phosphatase 59 U/L (46-116); BUN 28 mg/dL (7-18); Bilirubin, Total 0.4 mg/dL (0.2-1.0); CREATININE 1.7 mg/dL (0.70-1.30); Calcium 9.8 mg/dL (8.5-10.1); Chloride 99 mmol/L (98-107); Cholesterol 238 mg/dL (<200); Estimated GFR 41.52 (mL/min/1.73m2); Glucose 120 mg/dL (74-106); HDL Cholesterol 37 mg/dL (40-60); Potassium 4.5 mmol/L (3.5-5.1); Sodium 138 mmol/L (136-145); Total Protein 8.4 g/dL (6.4-8.2); Triglyceride 493 mg/dL (<150)
[2023-12-03 17:43] LABS: LDL CHOLESTEROL 136 mg/dL (<100)
[2023-12-03 22:18] LABS: PSA, Diagnostic <0.1 ng/mL (<=6.5)
== END 2023-12-03 13:19 | disposition home or self-care (01) ==
LOC: NCHCN 13:18
PROVIDERS: Urology; PCP Family Medicine; Visit Provider Family Medicine
DX: E11.9 Type 2 diabetes mellitus without complications (principal); C61 Malignant neoplasm of prostate; E78.5 Hyperlipidemia, unspecified
CPT/HCPCS: 80053; 80061; 83721; 83036; 84153

== ENCOUNTER 2024-03-11 18:30 | Outpatient (REF) | payer MEDICARE, BC, SELFPAY ==
[2024-03-11 22:55] LABS: Microalb ug/mg Crea 98.9 ug/mg Cr
== END 2024-03-11 18:31 | disposition home or self-care (01) ==
LOC: NCHCN 18:30
PROVIDERS: PCP Family Medicine; Visit Provider Family Medicine
DX: E11.9 Type 2 diabetes mellitus without complications (principal)
CPT/HCPCS: 82043; 82570

== ENCOUNTER 2024-06-10 16:05 | Outpatient (REF) | payer MEDICARE, BC, SELFPAY ==
[2024-06-10 21:28] LABS: Anion Gap 8.9 mmol/L (3-11); BUN 36 mg/dL (7-18); CO2 31.1 mmol/L (21.0-32.0); Calcium 9.1 mg/dL (8.5-10.1); Chloride 102 mmol/L (98-107); Estimated GFR 34.16 (mL/min/1.73m2); Glucose 134 mg/dL (74-106); Potassium 4.5 mmol/L (3.5-5.1); Sodium 142 mmol/L (136-145)
== END 2024-06-10 16:06 | disposition home or self-care (01) ==
LOC: NCHCN 16:05
PROVIDERS: PCP Family Medicine; Visit Provider Family Medicine
DX: N18.30 Chronic kidney disease, stage 3 unspecified (principal)
CPT/HCPCS: 80048

== ENCOUNTER 2024-09-17 22:08 | Outpatient (REF) | payer MEDICARE, BC, SELFPAY ==
[2024-09-17 21:38] LABS: HGB 12.4 g/dL (13.5-17.5); MCH 23.3 pg (27.0-33.0); MCV 75 fL (80-95); MPV 11.3 fL (8.0-11.0); Platelet Count 282 10^3/uL (130-400); RBC 5.33 10^6/uL (4.36-5.78); RDW 17.3 % (11.8-14.1); RDW-SD 45.9 fL; WBC 7.97 10^3/uL (4.4-10.8)
[2024-09-17 21:50] LABS: Anion Gap 6.2 mmol/L (3-11); BUN 33 mg/dL (7-18); CO2 31.8 mmol/L (21.0-32.0); Calcium 9.6 mg/dL (8.5-10.1); Chloride 103 mmol/L (98-107); Estimated GFR 34.16 (mL/min/1.73m2); Glucose 98 mg/dL (74-106); Potassium 4.9 mmol/L (3.5-5.1); Sodium 141 mmol/L (136-145)
== END 2024-09-17 22:09 | disposition home or self-care (01) ==
LOC: NCHCN 22:08
PROVIDERS: PCP Family Medicine; Visit Provider Family Medicine
DX: R31.0 Gross hematuria (principal); R82.89 Other abnormal findings on cytological and histological examination of urine
CPT/HCPCS: 80048; 85027

== ENCOUNTER 2024-12-14 14:20 | Outpatient (REF) | payer MEDICARE, BC, SELFPAY ==
[2024-12-14 20:58] LABS: HCT 35.1 % (40.0-50.0); MCH 23.3 pg (27.0-33.0); MCHC 31.3 % (32.0-36.0); Platelet Count 280 10^3/uL (130-400); RBC 4.72 10^6/uL (4.36-5.78); RDW 18.6 % (11.8-14.1); RDW-SD 49.7 fL; WBC 8.17 10^3/uL (4.4-10.8)
[2024-12-14 21:05] LABS: Anion Gap 5.9 mmol/L (3-11); BUN 34 mg/dL (7-18); CO2 31.1 mmol/L (21.0-32.0); Calcium 9.4 mg/dL (8.5-10.1); Chloride 101 mmol/L (98-107); Estimated GFR 33.95 (mL/min/1.73m2); Glucose 136 mg/dL (74-106); Potassium 4.7 mmol/L (3.5-5.1); Sodium 138 mmol/L (136-145)
[2024-12-14 21:13] LABS: MCV 74 fL (80-95)
== END 2024-12-14 14:21 | disposition home or self-care (01) ==
LOC: NCHCN 14:20
PROVIDERS: PCP Family Medicine; Visit Provider Family Medicine
DX: N18.30 Chronic kidney disease, stage 3 unspecified (principal); D64.9 Anemia, unspecified
CPT/HCPCS: 80048; 85027

== ENCOUNTER 2025-02-02 14:55 | Outpatient (REF) | payer MEDICARE, BC, SELFPAY | END 2025-02-02 14:56 | disposition home or self-care (01) | LOC: NCHCN 14:55 | PROVIDERS: PCP Family Medicine; Visit Provider Family Medicine | DX: N50.82 Scrotal pain (principal) | CPT/HCPCS: 87086 ==

== ENCOUNTER 2025-03-18 13:52 | Outpatient (REF) | payer MEDICARE, BC, SELFPAY ==
[2025-03-18 14:24] LABS: HCT 37.2 % (40.0-50.0); HGB 11.2 g/dL (13.5-17.5); MCH 22.2 pg (27.0-33.0); MCHC 30.1 % (32.0-36.0); MPV 10.5 fL (8.0-11.0); Platelet Count 270 10^3/uL (130-400); RBC 5.04 10^6/uL (4.36-5.78); RDW 18.2 % (11.8-14.1); RDW-SD 47.9 fL; WBC 8.37 10^3/uL (4.4-10.8)
[2025-03-18 14:42] LABS: MCV 74 fL (80-95)
[2025-03-18 15:56] LABS: Anion Gap 7.5 mmol/L (3-11); BUN 32 mg/dL (7-18); CO2 31.5 mmol/L (21.0-32.0); Calcium 9.2 mg/dL (8.5-10.1); Chloride 102 mmol/L (98-107); Estimated GFR 30.28 (mL/min/1.73m2); Glucose 129 mg/dL (74-106); Potassium 4.8 mmol/L (3.5-5.1); Sodium 141 mmol/L (136-145); Uric Acid 6.9 mg/dL (3.5-7.2)
== END 2025-03-18 13:53 | disposition home or self-care (01) ==
LOC: NCHCN 13:52
PROVIDERS: PCP Family Medicine; Visit Provider Family Medicine
DX: D50.9 Iron deficiency anemia, unspecified (principal); M10.9 Gout, unspecified
CPT/HCPCS: 80048; 85027; 84550

== ENCOUNTER 2025-04-18 19:29 | Outpatient (REF) | payer MEDICARE, BC, SELFPAY ==
[2025-04-18 16:21] LABS: Abs Immature Grans 0.06 10^3/uL (0.0-0.06); HCT 30.8 % (40.0-50.0); HGB 9.2 g/dL (13.5-17.5); Immature Grans % 0.7 %; MCH 22.0 pg (27.0-33.0); MCHC 29.9 % (32.0-36.0); MCV 74 fL (80-95); MPV 10.2 fL (8.0-11.0); Platelet Count 373 10^3/uL (130-400); RBC 4.19 10^6/uL (4.36-5.78); RDW 19.9 % (11.8-14.1); RDW-SD 52.1 fL; WBC 9.15 10^3/uL (4.4-10.8)
[2025-04-18 16:34] LABS: Anisocytosis 2+; Microcytosis 2+; Poikilocytes 1+
[2025-04-18 16:43] LABS: Anion Gap 9.6 mmol/L (3-11); BUN 27 mg/dL (7-18); CO2 24.4 mmol/L (21.0-32.0); Calcium 8.9 mg/dL (8.5-10.1); Chloride 106 mmol/L (98-107); Estimated GFR 36.11 (mL/min/1.73m2); Glucose 135 mg/dL (74-106); Potassium 4.9 mmol/L (3.5-5.1); Sodium 140 mmol/L (136-145)
[2025-04-18 20:33] LABS: ESR 52 mm/hr (0-20)
[2025-04-18 20:49] LABS: Creatine Kinase 56 U/L (39-308)
== END 2025-04-18 19:30 | disposition home or self-care (01) ==
LOC: LBN 19:29
PROVIDERS: PCP Family Medicine; Visit Provider Internal Medicine Infectious Disease
DX: B95.61 Methicillin susceptible Staphylococcus aureus infection as the cause of diseases classified elsewhere (principal)
CPT/HCPCS: 80048; 82550; 85652; 85025

== ENCOUNTER 2025-04-28 16:13 | Outpatient (REF) | payer MEDICARE, BC, SELFPAY ==
[2025-04-28 21:13] LABS: Anion Gap 9.6 mmol/L (3-11); BUN 31 mg/dL (7-18); CO2 28.4 mmol/L (21.0-32.0); Calcium 8.8 mg/dL (8.5-10.1); Chloride 102 mmol/L (98-107); Glucose 113 mg/dL (74-106); Potassium 4.9 mmol/L (3.5-5.1); Sodium 140 mmol/L (136-145); Uric Acid 6.9 mg/dL (3.5-7.2)
== END 2025-04-28 16:14 | disposition home or self-care (01) ==
LOC: NCHCN 16:13
PROVIDERS: PCP Family Medicine; Visit Provider Family Medicine
DX: M10.9 Gout, unspecified (principal); I10 Essential (primary) hypertension
CPT/HCPCS: 80048; 84550